=== PATIENT | female | born 1960 | race Caucasian/White ===

== ENCOUNTER 2017-12-01 10:00 | Outpatient (RCR) | payer OTHER, SELFPAY ==
--- NOTE | 2017-11-08 10:22 | HP.PTEVAL ---
Patient's Visit Information FLORENTINO GARG is a 57 year old F referred to Physical Therapy by Cara Brambila DO DR.LMALYS with a diagnosis of Spinal stenosis. Date of Evaluation: 11/08/17 Physical Therapist: Chiki Santiago, PT, - Visit Plan Frequency: 2x /Week Duration: 1 Week Plan: Edu pt on HEP of core stab ex's for deg changes to the LS - Subjective Subjective: Pt reports she has had LBP for over a year. Pt notes she was battling breast cancer at that time, and notes her LBP began while she was taking radiation and chemo. Pt reports she had an MRI one week ago which revealed bulging discs and spinal stenosis. Pt reports sitting sometimes causes her LBP, but notes proonged standing and walking increases her pain the most. Pt also notes she had a hard time transferring sit to stand until taking pain meds for the past 2 days. Occasional sleep diff secondary to pain. Pt reports all of her LBP is located on the R side of her LB. No LE T or N at this time. 2/10 at rest with pain meds, 10/10 prior to taking meds - Pain LBP Pain Intensity (Out of 10): 2 Pain Intensity Range: 10 - Objective Neuro: B LE sensation is WNL to light touch. B patellar reflex= 1/3. MMT: B LE 5/5 throughout. LS ROM: Pt is moderately limited with flexion, and L and R SB. Prone lying: Pt reported increased pain into R gluteal region. Hook lying: SKTC/DKTC both decreased pain in LB region - Goals Goal 1:: I with HEP in 2-3 visits Goal Time Frame: 1 Week - Rehabilitation Potential Physical Therapy Diagnosis: Pt has LBP and limited LS ROM secondary to LS stenosis Rehabilitation Potential: Good - Anticipated Interventions Patient/Client Instruction: Educate patient on: Condition, Plan of Care For the Purpose of:: To improve self management Therapeutic Exercise to Include: Strength training, Postural training, Flexibilty training, Dynamic Lumbar Stabilization For the Purpose of:: To decrease pain, To increase ROM, To improve muscle performance and motor function Cryotherapy (ice pack, ice massage): Yes For the Purpose of:: To decrease pain Thank you for the opportunity to evaluate your patient. For Medicare and Medicare HMO plans, please review the plan of care and approve it. It will need to be FAXED BACK to us at [phone] for Medicare purposes. Please let me know if there are questions or concerns regarding this plan of care. Physician Signature: Date:
--- NOTE | 2017-11-08 10:29 | HP.PTEVAL_ITS ---
Patient's Visit Information FLORENTINO GARG is a 57 year old F referred to Physical Therapy by Cara Brambila DO DR.LMALYS with a diagnosis of Spinal stenosis. Date of Evaluation: 11/08/17 Physical Therapist: Chiki Santiago, PT, - Visit Plan Frequency: 2x /Week Duration: 1 Week Plan: Edu pt on HEP of core stab ex's for deg changes to the LS - Subjective Subjective: Pt reports she has had LBP for over a year. Pt notes she was battling breast cancer at that time, and notes her LBP began while she was taking radiation and chemo. Pt reports she had an MRI one week ago which revealed bulging discs and spinal stenosis. Pt reports sitting sometimes causes her LBP, but notes proonged standing and walking increases her pain the most. Pt also notes she had a hard time transferring sit to stand until taking pain meds for the past 2 days. Occasional sleep diff secondary to pain. Pt reports all of her LBP is located on the R side of her LB. No LE T or N at this time. 2/ 10 at rest with pain meds, 10/10 prior to taking meds - Pain LBP Pain Intensity (Out of 10): 2 Pain Intensity Range: 10 - Objective Neuro: B LE sensation is WNL to light touch. B patellar reflex= 1/3. MMT: B LE 5/5 throughout. LS ROM: Pt is moderately limited with flexion, and L and R SB. Prone lying: Pt reported increased pain into R gluteal region. Hook lying: SKTC/DKTC both decreased pain in LB region - Goals Goal 1:: I with HEP in 2-3 visits Goal Time Frame: 1 Week - Rehabilitation Potential Physical Therapy Diagnosis: Pt has LBP and limited LS ROM secondary to LS stenosis Rehabilitation Potential: Good - Anticipated Interventions Patient/Client Instruction: Educate patient on: Condition, Plan of Care For the Purpose of:: To improve self management Therapeutic Exercise to Include: Strength training, Postural training, Flexibilty training, Dynamic Lumbar Stabilization For the Purpose of:: To decrease pain, To increase ROM, To improve muscle performance and motor function Cryotherapy (ice pack, ice massage): Yes For the Purpose of:: To decrease pain Thank you for the opportunity to evaluate your patient. For Medicare and Medicare HMO plans, please review the plan of care and approve it. It will need to be FAXED BACK to us at [phone] for Medicare purposes. Please let me know if there are questions or concerns regarding this plan of care. Physician Signature: Date:
--- NOTE | 2017-12-01 10:46 | HP.PTDCSUM ---
HP - PT D/C Summary It has been my pleasure to treat FLORENTINO GARG under orders from Cara Brambila DO, DR.LMALYS for the diagnosis of Spinal stenosis for a total of 4 visit(s). Discharge Date: Please see the following information for a summary of their discharge status. - Subjective Subjective: Pt reports she is stiff this date - Pain LBP Pain Intensity (Out of 10): 4 - Objective Objective/Function: Pt is now I with HEP. Pain has decreased, and pt notes she is much more functional at this time. Rx goals are achieved. - Goals Goal 1:: I with HEP in 2-3 visits Goal Progress: Goal Met - Plan Plan: Discharge - D/C Information If there are questions or concerns regarding this patient's physical therapy, please feel free to call me at [phone]. Thank you for the referral of this patient. Sincerely, Chiki Santiago, PT,
== END 2017-12-01 15:20 | disposition home or self-care (01) ==
LOC: PT 10:00
PROVIDERS: Family Provider Family Medicine; PCP Family Medicine; Visit Provider Family Medicine
DX: M48.061 Spinal stenosis, lumbar region without neurogenic claudication (principal); M51.06 Intervertebral disc disorders with myelopathy, lumbar region; M51.36 Other intervertebral disc degeneration, lumbar region
CPT/HCPCS: 97110; 97162; 97530

== ENCOUNTER 2018-02-13 20:14 | Observation (INO) | payer OTHER, SELFPAY ==
[2018-02-13 20:17] VITALS: BP 178/88; PULSE 99; RESP 25; TEMP 36.7; O2SAT 97; BMI 52.9
--- NOTE | 2018-02-13 21:07 | RAD_ITS ---
STUDY: X-RAY CHEST REASON FOR EXAM: Female, 57 years old. Chest pain TECHNIQUE: Single AP portable view of the chest. COMPARISON: 03/18/2017. FINDINGS: The lungs are clear and expanded. There is no demonstrated pleural abnormality. Normal size heart. Normal mediastinum and joaquin. Normal visualized pulmonary arteries. Normal visualized aortic arch and descending thoracic aorta. Normal visualized thoracic spine. Normal visualized ribs, clavicles, and shoulders. There is no demonstrated abnormality of the visualized soft tissue structures of the upper abdomen. RAD/Chest 1 View (Portable) IMPRESSION: Normal x-ray examination of the chest. Electronically Signed: Jarad Delgado MD at 21:29 EDT , Service support ,
--- NOTE | 2018-02-13 21:07 | EKG12_ITS ---
Test Reason : CP Blood Pressure : / mmHG Vent. Rate : 098 BPM Atrial Rate : 098 BPM P-R Int : 174 ms QRS Dur : 086 ms QT Int : 348 ms P-R-T Axes : 055 001 031 degrees QTc Int : 444 ms Normal sinus rhythm Low voltage QRS Septal infarct , age undetermined Abnormal ECG Confirmed by YANELIS ROMANO, RENAY ([id number]), pictures editor PRASAD LYNN ([id number]) on 02/16/2018 12:50:51 PM Referred By: MARIO ALBERTO BAJWA Confirmed By:RENAY HILARIO MD
[2018-02-13 21:08] VITALS: O2SAT 98
[2018-02-13] MEDS: Aspirin 81 MG TAB.CHEW 324 MG PO (21:18)
[2018-02-13 21:19] VITALS: BP 155/81; PULSE 96; RESP 21; O2SAT 96
[2018-02-13 21:36] LABS: Absolute Lymphocyte Count 1.58 X10^3/ul (0.83-4.51); Absolute Neutrophil Count 4.3 X10^3/uL (2.0-7.7); Basophil# 0.03 X10^3/uL; Basophil% 0.5 % (0-1); Hematocrit 37.8 % (37-47); Hemoglobin 11.7 g/dl (12.0-15.0); Lymphocyte # 1.58 X10^3/ul (4.0); Lymphocyte % 23.8 % (19-41); Mean Corpuscular Volume 93.8 fL (81-99); Mean Platelet Vol. 10.5 fl (6.2-12.0); Monocyte# 0.51 X10^3/uL; Monocyte% 7.7 % (0-10); Neutrophil # 4.31 X10^3/uL (2.7-7.7); Neutrophil % 64.8 % (47-70); POSITIVE COUNT NO; POSITIVE DIFFERENTIAL NO; POSITIVE MORPHOLOGY NO; Platelet Count 205 K/mm3 (150-450); RBC Distribution Width CV 14.6 % (11.6-14.6); RBC Distribution Width SD 49.6 fl (35.1-43.9); Red Blood Count 4.03 M/mm3 (4.2-5.4); White Blood Count 6.6 K/mm3 (4.4-11.0)
[2018-02-13 22:00] LABS: Anion Gap 4 (5-15); BUN 16 mg/dL (7-18); BUN/Creat Ratio 22.2 RATIO (10-20); Calcium,Total 8.7 mg/dL (8.5-10.1); Chloride 104 mmol/L (98-107); Creatinine, Serum 0.72 mg/dL (0.55-1.02); EST Glomerular Filtration Rate 89 mL/min (>60); Est Glom Filt Rate - Afr Amer 107 mL/min (>60); Estimated Creatinine Clearance 66.62 ml/min; Glucose 217 mg/dL (74-106); Potassium 3.9 mmol/L (3.5-5.1); Sodium Level 138 mmol/L (136-145)
[2018-02-13 22:10] LABS: BNP,B-Type NATRIURETIC PEPTIDE 13.3 pg/mL (0-100)
--- NOTE | 2018-02-13 23:25 | ED.VISSUMM ---
- ER Visit Summary Date of Service: 02/13/18 Chief Complaint: Chest pain and shortness of breath History of Present Illness: The patient is a [address] Brambila. She reports that she has had intermittent chest heaviness the past 2 days. This lasted approximately 30 minutes and occurred while she was at rest. However, she reports that she has chest pain that began this morning while she was at rest and has been constant all day. Pain waxes and wanes. She describes as a heaviness. Is 6 out of 10 at worst and 3-10 currently. Is worsened by exertion. It is unchanged with breathing. It is improved with rest. Patient reports she has been nauseated and much more short of breath than usual. Finally she complains of bilateral lower extremity edema that began yesterday. Physical Examination: Vitals: Stable. Afebrile. General: Well-nourished and well-developed. Head: Normocephalic atraumatic. Neck: Supple, no lymphadenopathy. No JVD. Nontender. Cardiovascular: Regular rate and rhythm. No murmurs. Respiratory: No respiratory distress. Clear to auscultation bilaterally. Abdominal: Soft, nontender, nondistended, normal bowel sounds. No guarding, rebound, or peritoneal signs. Back: Nontender. Extremities: Nontender, 3+ pitting edema over lower extremity bilaterally. Skin: Normal color, no rash. Neurologic: Alert and oriented ?3. Cranial nerves II through XII are intact. Normal strength and sensation. Psych: Normal affect. Test Results: EKG is sinus at [address] changes. Troponin is negative. PT BUSINESS APPLICATIONS SPECIALIST is 13.3. Chem-7 is more for glucose 217. CBC is marked for hemoglobin 11.7. Chest x-ray is normal. Emergency Department Course and Treatment: Patient was treated with aspirin. She is resting comfortably. Treatment Plan: She will discussed with Dr. Hodges. She will be admitted to the hospital for further evaluation and treatment. Disposition: Admitted in stable condition. Impression: 1. Chest pain. 2. Peripheral edema. 3. WALESKA score of 0. This note was generated with VideoSurfation software. It may contain incorrect words, spelling, and punctuation that were not noted in review of the chart prior to signing ED Disposition - Plan for ED Patient: Chief Complaint: Shortness of Breath Referrals: Cara Brambila DO [Primary Care Provider] -
--- NOTE | 2018-02-13 23:28 | ED.DCSUM_ITS ---
- ER Visit Summary Date of Service: 02/13/18 Chief Complaint: Chest pain and shortness of breath History of Present Illness: The patient is a [address] Brambila. She reports that she has had intermittent chest heaviness the past 2 days. This lasted approximately 30 minutes and occurred while she was at rest. However, she reports that she has chest pain that began this morning while she was at rest and has been constant all day. Pain waxes and wanes. She describes as a heaviness. Is 6 out of 10 at worst and 3-10 currently. Is worsened by exertion. It is unchanged with breathing. It is improved with rest. Patient reports she has been nauseated and much more short of breath than usual. Finally she complains of bilateral lower extremity edema that began yesterday. Physical Examination: Vitals: Stable. Afebrile. General: Well-nourished and well-developed. Head: Normocephalic atraumatic. Neck: Supple, no lymphadenopathy. No JVD. Nontender. Cardiovascular: Regular rate and rhythm. No murmurs. Respiratory: No respiratory distress. Clear to auscultation bilaterally. Abdominal: Soft, nontender, nondistended, normal bowel sounds. No guarding, rebound, or peritoneal signs. Back: Nontender. Extremities: Nontender, 3+ pitting edema over lower extremity bilaterally. Skin: Normal color, no rash. Neurologic: Alert and oriented ?3. Cranial nerves II through XII are intact. Normal strength and sensation. Psych: Normal affect. Test Results: EKG is sinus at [address] changes. Troponin is negative. PT TOOL DRAWING CHECKER is 13.3. Chem-7 is more for glucose 217. CBC is marked for hemoglobin 11.7. Chest x-ray is normal. Emergency Department Course and Treatment: Patient was treated with aspirin. She is resting comfortably. Treatment Plan: She will discussed with Dr. Hodges. She will be admitted to the hospital for further evaluation and treatment. Disposition: Admitted in stable condition. Impression: 1. Chest pain. 2. Peripheral edema. 3. WALESKA score of 0. This note was generated with Quizensation software. It may contain incorrect words, spelling, and punctuation that were not noted in review of the chart prior to signing ED Disposition - Plan for ED Patient: Chief Complaint: Shortness of Breath Referrals: Cara Brambila DO [Primary Care Provider] -
--- NOTE | 2018-02-13 23:29 | HP.PCM_ITS ---
Problem List (1) Chest pain Status: Acute Qualifiers: Chest pain type: unspecified Qualified Code(s): R07.9 - Chest pain, unspecified (2) History of breast cancer Status: Chronic (3) Hypertension Status: Chronic (4) Morbid obesity with BMI of 45.0-49.9, adult Status: Chronic (5) DM (diabetes mellitus), type 2, uncontrolled Status: Chronic Comment: new diagnosis......pt states she was told she was borderline in the past (6) Sleep apnea Status: Chronic History of Present Illness Date of Admission: 02/13/18 Chief Complaint: chest pain The patient is a 57 year old female presents to the ER with one day of substernal chest pain. Currently 3-4/10 non radiating and feels like a heaviness. No previous cardiac stress testing done. She has a history of breast cancer status post lumpectomy 2014, and chem and radiation following that. She also has diabetes which is reportedly under poor control. She has gained 20lbs recently and feels more swollen than usual. The patient reports having an echo about a year ago in [place] but thinks she was told one of her chambers wasn't working as well. She did not follow up with a central supply assistant. She will be admitted for further cardiac workup. Past Medical History Past Medical History (Chronic Problems): Chronic Problems Low HDL (under 40) (Chronic) History of breast cancer (Chronic) Hepatic steatosis (Chronic) Hypertension (Chronic) Morbid obesity with BMI of 45.0-49.9, adult (Chronic) DM (diabetes mellitus), type 2, uncontrolled (Chronic) new diagnosis......pt states she was told she was borderline in the past Sleep apnea (Chronic) Allergies No Known Allergies Allergy (Verified 02/13/18 20:16) Home Medications: Ambulatory Orders Medication Instructions Recorded Atorvastatin Calcium [Lipitor] 40 mg PO QHS 03/18/17 Lisinopril [Zestril] 2.5 mg PO DAILY 03/18/17 Metformin(XR) [Glucophage Xr] 1,000 mg PO BIDCM #60 tablet 03/22/17 Glipizide [Glipizide ER] 10 mg PO DAILY 02/13/18 Meloxicam [Mobic] 15 mg PO DAILY 02/13/18 Pioglitazone [Actos] 15 mg PO DAILY 02/13/18 Tamoxifen Citrate 20 mg PO DAILY 02/13/18 Surgical History: - - tubal ligation, 2 C sections, sbo hernia repair Psychiatric History: No pertinent psych hx SAFETY SUPERVISOR History: - - She is in menopause and has had 2 caesarian sections in the past Smoking Status: Former smoker - *Family History Paternal History Items: - - Her father had diabetes mellitus and of complications secondary to diabetes mellitus. Maternal History Items: - - She tells me that her mother had stomach cancer. Offspring History Items: - - One of her children has diabetes mellitus and sleep apnea. Review of Systems Constitutional: Denies: Chills, Fever, Weight Change HEENT: Denies: Head Aches, Sinus Congestion, Sinus Drainage Cardiovascular: Reports: Chest Pain. Denies: Palpitations Respiratory: Reports: Shortness of Breath. Denies: Cough, Sputum production Gastrointestinal: Denies: Abdominal Pain, Nausea, Vomiting Genitourinary: Denies: Dysuria Musculoskeletal: Denies: Joint Pain, Joint Tenderness Skin: Denies: Rash, Wounds Neurological: Denies: Numbness, Tingling, Focal weakness Psychiatric: Reports: Anxiety. Denies: Depression, Homicidal Ideations, Suicidal Ideations Hematologic/ Lymphatic: Denies: Easy Bruising, Easy Bleeding VTE Information - Inpt Only VTE Present on Admission: No VTE Mechan Device Prophylaxis: None VTE Pharm Prophylaxis ordered?: Yes Patient Problems: Active and Suspected Problems Chest pain (Acute) - Physical Exam General: Alert, Oriented x3, Cooperative HEENT: Atraumatic, Normocephalic Neck: Supple Lungs: Clear to auscultation, Normal air movement Cardiovascular: Regular rate, Normal S1, Normal S2, No murmurs Abdomen: Bowel Sounds Present, Soft, Non Tender, Obese Extremities: Capillary Refill Less than 3 Seconds, Edema - 1+ lower ext edema Skin: No rashes Musculoskeletal: No Tenderness to Palpation of Joints or Extremities Neurological: Neuro grossly intact Psych/Mental Status: Normal Affect, Appropriate Vital Signs Temp Pulse Resp BP Pulse Ox 98.1 F 96 21 H 155/81 H 96 02/13/18 20:17 02/13/18 21:19 02/13/18 21:19 02/13/18 21:19 02/13/18 21:19 Oxygen Delivery Method Room Air Weight: 280 lb 3.32 oz Body Mass Index (BMI) 52.9 Finger Stick Blood Glucose 190 Laboratory Tests Past 24 Hrs 02/13/18 02/13/18 02/13/18 20:50 20:50 20:50 WBC 6.6 RBC 4.03 L Hgb 11.7 L Hct 37.8 MCV 93.8 MCH 29.0 MCHC 31.0 L RDW 14.6 RDW Differential 49.6 H Plt Count 205 MPV 10.5 Immature Gran % (Auto) 0.200 Neut % (Auto) 64.8 Lymph % (Auto) 23.8 [place] % (Auto) 7.7 Eos % (Auto) 3.0 Baso % (Auto) 0.5 Absolute Neuts (auto) 4.3 Absolute Lymphs (auto) 1.58 Total Counted Not Reportable Sodium 138 Potassium 3.9 Chloride 104 Carbon Dioxide 30.0 Anion Gap 4 L BUN 16 Creatinine 0.72 Estim Creat Clear Calc 66.62 Est GFR (MDRD) Af Amer 107 Est GFR (MDRD) Non-Af 89 BUN/Creatinine Ratio 22.2 H Glucose 217 H Calcium 8.7 Troponin I < 0.02 B-Natriuretic Peptide 13.3 Assessment/Plan Active and Suspected Problems Chest pain (Acute) Chronic Problems Low HDL (under 40) (Chronic) History of breast cancer (Chronic) Hepatic steatosis (Chronic) Hypertension (Chronic) Morbid obesity with BMI of 45.0-49.9, adult (Chronic) DM (diabetes mellitus), type 2, uncontrolled (Chronic) new diagnosis......pt states she was told she was borderline in the past Sleep apnea (Chronic) Plan - admit to PCU - morphine , oxygen, nitro and aspirin per routine - cycle cardiac markers - nuclear stress test in am (pharmacologic) - echo in am to follow up on reported previous abnormality - Continue routine home medications for stable conditions - LMWH for dvt prophylaxis Code Visit OBSV E&M: 85123 Initial observation care L2
--- NOTE | 2018-02-13 23:48 | NURSING ---
CALLED CRISIS TO SEE THIS PT
[2018-02-13 23:57] VITALS: BP 153/66; PULSE 82; RESP 16; O2SAT 98
[2018-02-13 23:59] VITALS: BP 153/66; PULSE 78; RESP 20; O2SAT 98
[2018-02-14] VITALS (11 sets, daily range): BP systolic 118–155; BP diastolic 66–74; PULSE 79–98; RESP 16–18; TEMP 36.4–36.8; O2SAT 95; BMI 52.2
[2018-02-14] MEDS: 0.9% NaCl Peripheral Flush Adult/Peds IV ×2 (01:16→06:32)
[2018-02-14 01:35] LABS: Bedside Glucose 122 mg/dL (70-110)
[2018-02-14 05:34] LABS: Absolute Lymphocyte Count 1.28 X10^3/ul (0.83-4.51); Absolute Neutrophil Count 3.2 X10^3/uL (2.0-7.7); Basophil# 0.02 X10^3/uL; Basophil% 0.4 % (0-1); Eosinophil# 0.17 X10^3/uL; Eosinophils% 3.3 % (0-5); Hematocrit 34.5 % (37-47); Hemoglobin 10.7 g/dl (12.0-15.0); Lymphocyte # 1.28 X10^3/ul (4.0); Lymphocyte % 25.2 % (19-41); Mean Corpuscular Hgb 29.6 pg (27.0-32.0); Mean Corpuscular Volume 95.3 fL (81-99); Mean Platelet Vol. 10.7 fl (6.2-12.0); Monocyte# 0.42 X10^3/uL; Monocyte% 8.3 % (0-10); Neutrophil # 3.18 X10^3/uL (2.7-7.7); Neutrophil % 62.6 % (47-70); Platelet Count 179 K/mm3 (150-450); RBC Distribution Width CV 14.6 % (11.6-14.6); RBC Distribution Width SD 48.4 fl (35.1-43.9); Red Blood Count 3.62 M/mm3 (4.2-5.4); White Blood Count 5.1 K/mm3 (4.4-11.0)
[2018-02-14 05:35] LABS: POSITIVE COUNT NO; POSITIVE DIFFERENTIAL NO; POSITIVE MORPHOLOGY NO
[2018-02-14 05:38] LABS: International Normalized Ratio 1.1
[2018-02-14 05:39] LABS: Partial Thromboplast Time 27.7 Seconds (24.1-36.2)
--- NOTE | 2018-02-14 05:55 | ECHOD_ITS ---
Reason For Study: CHEST PAIN Procedure This was a 2D Doppler, Color Flow transthoracic echocardiogram. The study was technically difficult. Contrast injection was performed. Exam performed portable in patient room. Left Ventricle Normal LV size. Left ventricular systolic function is normal. The estimated ejection fraction is 65 %. Transmitral doppler flow suggestive of impaired relaxation of left ventricle. No regional wall motion abnormalities noted. Right Ventricle Normal RV size. Normal systolic function. Atria Normal left atrium. Normal right atrium. No doppler evidence for ASD. Mitral Valve There is no mitral annular calcification. Normal mitral valve. Trivial mitral valve insufficiency. Tricuspid Valve The tricuspid valve is not well visualized. Trivial tricuspid valve insufficiency. Right ventricular systolic pressure estimated to be 26 mmHg. Aortic Valve The aortic valve is not well visualized. Pulmonic Valve The pulmonic valve is not well visualized. Great Vessels Normal sized aortic root. Pericardium/Pleural No pericardial effusion. Medication Diluted definity 4ml given slow IV push to enhance endocardial definition. MMode/2D Measurements & Calculations LVIDd: 4.5 cm IVSd: 1.2 cm Ao root diam: 3.0 cm LVIDs: 2.9 cm LVPWd: 1.2 cm LA dimension: 3.4 cm RVDd: 3.1 cm FS: 37.0 % LAV(MOD-sp4): 33.8 ml EDV(MOD-sp4): 144.9 ml EDV(MOD-sp2): 101.4 ml ESV(MOD-sp4): 47.6 ml EF(MOD-sp2): 67.2 % EF(MOD-sp4): 67.2 % SV(MOD-sp4): 97.3 ml SV(MOD-sp2): 68.1 ml LA A4 area: 15.3 cm2 Doppler Measurements & Calculations MV E max hollis: 103.5 cm/sec Lat Peak E' Hollis: 8.9 cm/sec Med Peak E' Hollis: 7.7 cm/sec MV A max hollis: 108.8 cm/sec E/E' lat: 11.6 E/E' med: 13.5 MV E/A: 0.95 Ao V2 max: 229.2 cm/sec LV V1 max: 117.0 cm/sec TR max hollis: 240.0 cm/sec Ao max P.0 mmHg LV V1 max P.5 mmHg TR max P.4 mmHg Interpretation Summary The study was technically difficult. Contrast injection was performed. Left ventricular systolic function is normal. The estimated ejection fraction is 65 %. Trivial mitral valve insufficiency. Trivial tricuspid valve insufficiency. Right ventricular systolic pressure estimated to be 26 mmHg. Transmitral doppler flow suggestive of impaired relaxation of left ventricle Ordering Physician: Lance Whiteside Referring Physician: COBY MARCUS Performed By: Dana Cox RDCS, RVT
--- NOTE | 2018-02-14 05:55 | EKG12_ITS ---
Test Reason : AM EKG Blood Pressure : / mmHG Vent. Rate : 083 BPM Atrial Rate : 083 BPM P-R Int : 184 ms QRS Dur : 096 ms QT Int : 394 ms P-R-T Axes : 061 031 018 degrees QTc Int : 462 ms Normal sinus rhythm Low voltage QRS Borderline ECG Confirmed by YANELIS ROMANO, RENAY ([id number]), supervising film or videotape editor PRASAD LYNN ([id number]) on 02/16/2018 1:23:04 PM Referred By: MARIO ALBERTO BAJWA Confirmed By:RENAY HILARIO MD
[2018-02-14 06:00] LABS: ALB/GLOB Ratio 0.8 RATIO (0.9-2.4); AST(SGOT) 14 U/L (15-37); Alanine Aminotransfer ALT/SGPT 19 U/L (13-56); Albumin, Serum 2.8 g/dL (3.2-5.0); Alkaline Phosphatase 69 U/L (45-117); Anion Gap 9 (5-15); BUN 12 mg/dL (7-18); Bilirubin, Direct 0.08 mg/dL (0.00-0.30); Calcium,Total 7.9 mg/dL (8.5-10.1); Chloride 107 mmol/L (98-107); Cholesterol 146 mg/dL (200); Creatinine, Serum 0.48 mg/dL (0.55-1.02); EST Glomerular Filtration Rate 142 mL/min (>60); Est Glom Filt Rate - Afr Amer 172 mL/min (>60); Estimated Creatinine Clearance 99.93 ml/min; Globulin 3.6 g/dL (2.2-4.2); Glucose 129 mg/dL (74-106); High Density Lipoprotein 55 mg/dL; Potassium 3.8 mmol/L (3.5-5.1); Protein, Total 6.4 g/dL (6.4-8.2); Sodium Level 145 mmol/L (136-145); Thyroid Stim Hormone (TSH) 3.18 uIU/mL (0.358-3.74); Triglycerides 78 mg/dL; Very Low Density Lipoprotein 16 mg/dL (5-40)
[2018-02-14] MEDS: Lisinopril 2.5 MG Tablet PO (06:32)
[2018-02-14] MEDS: Aspirin E.C. 325 MG Tablet PO (06:33)
[2018-02-14] MEDS: Acetaminophen 325 MG Tablet 650 MG PO (06:33)
[2018-02-14 07:10] LABS: Bedside Glucose 149 mg/dL (70-110)
--- NOTE | 2018-02-14 09:40 | NURSING ---
off floor to stress test at this time
--- NOTE | 2018-02-14 12:10 | STRESSREP ---
Stress Test Report Date: 02/14/2018 Procedure: Pharmacologic stress nuclear imaging study Indications: Chest pain Consent: Per the patient Procedure: The patient underwent pharmacologic (Regadenoson) evaluation with a peak heart rate of 105 beats per minute (63 predicted maximal heart rate) and a peak blood pressure of 133/64 mmHg. The baseline ECG demonstrated normal sinus rhythm. The peak pharmacologic ECG demonstrated no obvious ECG changes. There were no cardiac dysrhythmias pretest, during pharmacologic infusion, or recovery. There was no complaint of chest discomfort during pharmacologic infusion or recovery. The examination was discontinued secondary to completion of protocol. Impression: 1. Pharmacologic (Regadenoson) evaluation 2. Peak pharmacologic ECG with no obvious ECG changes. 3. There were no cardiac dysrhythmias pretest, during pharmacologic infusion, or recovery 4. Nuclear images pending Myocardial perfusion imaging study: Technique: The patient was injected with 15 millicuries of technetium 99m Cardiolite and subsequently rest SPECT Cardiolite nuclear imaging was obtained in the horizontal long, vertical long, and short axis views. The patient underwent pharmacologic (Regadenoson) evaluation with a peak heart rate of 105 beats per minute (63 % percent predicted maximal heart rate) and a peak blood pressure of 133/64 mmHg. The patient was injected with 44.1 millicuries of technetium 99m Cardiolite and subsequently stress SPECT Cardiolite nuclear imaging was obtained in the horizontal long, vertical long, and short axis views. A gated Cardiolite study at peak stress was obtained. Interpretation: Rest and stress SPECT Cardiolite nuclear imaging status post realignment, normalization, and attenuation correction demonstrate small area of diminished tracer uptake near the distal anterior septum/septal apical areas without significant change between rest and stress. There are similar type findings on the resting and stress polar map images.. There is end systolic thickening and brightening. The gated Cardiolite study demonstrates myocardial thickening and inward wall motion. The reported LVEF is 73 %. Impression: 1. Rest and stress SPECT Cardiolite nuclear imaging demonstrate small area of diminished tracer uptake near the distal anterior septum/septal apical areas without significant change between rest and stress compatible with physiologic apical thinning with no myocardial perfusion changes consider diagnostic for associated stress-induced myocardial ischemia or previous myocardial injury/infarction. 2. The gated Cardiolite study reports an LVEF of 73 %. This note was generated with navabi software. It may contain incorrect words, spelling, and punctuation that were not noted in checking the note before signing.
[2018-02-14] MEDS: Pioglitazone Hydrochloride 15 MG Tablet PO (12:17)
[2018-02-14] MEDS: Tamoxifen 10 MG Tablet 20 MG PO (12:17)
[2018-02-14] MEDS: glipiZIDE 10 MG Tablet PO (12:20)
[2018-02-14 12:25] LABS: Bedside Glucose 179 mg/dL (70-110)
--- NOTE | 2018-02-14 12:25 | STRESSREP_ITS ---
Stress Test Report Date: 02/14/2018 Procedure: Pharmacologic stress nuclear imaging study Indications: Chest pain Consent: Per the patient Procedure: The patient underwent pharmacologic (Regadenoson) evaluation with a peak heart rate of 105 beats per minute (63 predicted maximal heart rate) and a peak blood pressure of 133/64 mmHg. The baseline ECG demonstrated normal sinus rhythm. The peak pharmacologic ECG demonstrated no obvious ECG changes. There were no cardiac dysrhythmias pretest, during pharmacologic infusion, or recovery. There was no complaint of chest discomfort during pharmacologic infusion or recovery. The examination was discontinued secondary to completion of protocol. Impression: 1. Pharmacologic (Regadenoson) evaluation 2. Peak pharmacologic ECG with no obvious ECG changes. 3. There were no cardiac dysrhythmias pretest, during pharmacologic infusion, or recovery 4. Nuclear images pending Myocardial perfusion imaging study: Technique: The patient was injected with 15 millicuries of technetium 99m Cardiolite and subsequently rest SPECT Cardiolite nuclear imaging was obtained in the horizontal long, vertical long, and short axis views. The patient underwent pharmacologic (Regadenoson) evaluation with a peak heart rate of 105 beats per minute (63 % percent predicted maximal heart rate) and a peak blood pressure of 133/64 mmHg. The patient was injected with 44.1 millicuries of technetium 99m Cardiolite and subsequently stress SPECT Cardiolite nuclear imaging was obtained in the horizontal long, vertical long, and short axis views. A gated Cardiolite study at peak stress was obtained. Interpretation: Rest and stress SPECT Cardiolite nuclear imaging status post realignment, normalization, and attenuation correction demonstrate small area of diminished tracer uptake near the distal anterior septum/septal apical areas without significant change between rest and stress. There are similar type findings on the resting and stress polar map images.. There is end systolic thickening and brightening. The gated Cardiolite study demonstrates myocardial thickening and inward wall motion. The reported LVEF is 73 %. Impression: 1. Rest and stress SPECT Cardiolite nuclear imaging demonstrate small area of diminished tracer uptake near the distal anterior septum/septal apical areas without significant change between rest and stress compatible with physiologic apical thinning with no myocardial perfusion changes consider diagnostic for associated stress-induced myocardial ischemia or previous myocardial injury/ infarction. 2. The gated Cardiolite study reports an LVEF of 73 %. This note was generated with [employer]ix[employer] software. It may contain incorrect words, spelling, and punctuation that were not noted in checking the note before signing.
[2018-02-14] MEDS: Enoxaparin 40 MG/0.4 ML Syringe SC (13:38)
--- NOTE | 2018-02-14 17:26 | DS.PCM_ITS ---
Discharge Date and Diagnosis - Problem List Patient Problems: Active and Suspected Problems Chest pain (Acute) Date of Admission: 02/13/18 Date of Discharge: 02/14/18 - Primary Discharge Diagnosis Active and Suspected Problems Chest pain (Acute) Edema of upper and lower extremities and face Suspected edema 2/2 tamoxifen DMt2 HTN HLD Morbid obesity Breast cancer in remission - Secondary Discharge Diagnosis Chronic Problems Low HDL (under 40) (Chronic) History of breast cancer (Chronic) Hepatic steatosis (Chronic) Hypertension (Chronic) Morbid obesity with BMI of 45.0-49.9, adult (Chronic) DM (diabetes mellitus), type 2, uncontrolled (Chronic) new diagnosis......pt states she was told she was borderline in the past Sleep apnea (Chronic) Hospital Course and Treatment Imaging Results: Echo: Interpretation Summary The study was technically difficult. Contrast injection was performed. Left ventricular systolic function is normal. The estimated ejection fraction is 65 %. Trivial mitral valve insufficiency. Trivial tricuspid valve insufficiency. Right ventricular systolic pressure estimated to be 26 mmHg. Transmitral doppler flow suggestive of impaired relaxation of left ventricle RAD/Chest 1 View (Portable) IMPRESSION: Normal x-ray examination of the chest. Stress Test: Impression: 1. Rest and stress SPECT Cardiolite nuclear imaging demonstrate small area of diminished tracer uptake near the distal anterior septum/septal apical areas without significant change between rest and stress compatible with physiologic apical thinning with no myocardial perfusion changes consider diagnostic for associated stress-induced myocardial ischemia or previous myocardial injury/ infarction. 2. The gated Cardiolite study reports an LVEF of 73 %. Operations: None, - - exploratory laparotomy with release of incarcerated ventral incisional hernia, lysis of adhesions, release small bowel obstruction with release of internal hernia Procedures: 2-D Echocardiogram, Stress test Summary of Care Provided: Physical exam on day of discharge: General: Resting comfortably NAD Psych: A/Ox3 normal affect HEENT: PEARRLA AT NC Neck: Supple NT CV: RRR no m/t/r/g/h Resp: CTA Abd: [id number] Soft NT no guarding or rigidity, morbidly obese Ext: DP2+= no pitting edema appreciated. Negative Homans/Yg sign. Skin: W/D normal turgor Lymph/Heme: No active bleeding or adenopathy Neuro: CN2-12 intact Hospital course: The patient is a 57 year old F who presents to the emergency room with chief complaint of swelling of her upper lower extremities, and face, and substernal chest heaviness. Patient has a history of breast cancer in remission status post lumpectomy, chemo, and radiation, currently on tamoxifen. She noted that she has recently gained about 20 pounds and feels more swollen than normal. She also has a history of type 2 diabetes, hyperlipidemia, morbid obesity, hypertension. She had a negative chest x-ray, negative troponin, negative EKG, and was admitted to the PCU for chest pain workup. We cycled her troponins, repeat EKG, maintained her on telemetry, and obtained a stress test and echocardiogram. Her workup was unremarkable. We also checked a TSH which was negative, LDLs which were at 75, and a BNP which was negative. Is felt that her chest discomfort is musculoskeletal in origin. Is felt that her increased peripheral edema was likely secondary to her tamoxifen which had been recently started. We advised her to have close follow-up with her oncologist she will also need follow-up with her PCP. She is discharged home in stable condition. This patient was seen by Benjie Novak PA-C under the supervision of Doctor Zain. [] Discharge Diet: Low fat/ Low Cholesterol, 1800 Calorie Control Diet, 2000 mg Sodium Diet Discharge Activity: Return to Normal Activity Home Medications: Medications to take at Discharge Atorvastatin Calcium [Lipitor] 40 mg PO QHS 03/18/17 Lisinopril [Zestril] 2.5 mg PO DAILY 03/18/17 Metformin(XR) [Glucophage Xr] 1,000 mg PO BIDCM #60 tablet 03/22/17 Glipizide [Glipizide ER] 10 mg PO DAILY 02/13/18 Pioglitazone [Actos] 15 mg PO DAILY 02/13/18 Tamoxifen Citrate 20 mg PO DAILY 02/13/18 Primary Care Physician: Cara Brambila DO [Primary Care Provider] - Please follow up with your Primary Care Physician in: 1-2 weeks Please Follow Up With: Your oncologist When: 1-2 weeks Disposition: Home Minutes spent on discharge:: 35 Patient Condition:: Stable Medical Necessity - Tobacco Use Smoking Status: Former smoker Meaningful Use Info Meaningful Use Diagnoses (Choose all that apply): None applicable
--- NOTE | 2018-02-14 17:27 | DCINST_ITS ---
- Discharge Diagnoses Current Active Problems: Current Active and Chronic Problems Chest pain (Acute) You will use the following diet at home:: Calorie/Carbohydrate Controlled ( specify 1200, 1400, etc) - 1800, Cardiac - <2 g sodium per day, low fat/ cholesterol Your food should be the consistency of: Regular Your liquids should be the consistency of: Regular/Thin Discharge Activity: Return to Normal Activity Allergies/Adverse Reactions: Allergies No Known Allergies Allergy (Verified 02/13/18 20:16) Medications to take at Discharge Atorvastatin Calcium [Lipitor] 40 mg PO QHS 03/18/17 Lisinopril [Zestril] 2.5 mg PO DAILY 03/18/17 Metformin(XR) [Glucophage Xr] 1,000 mg PO BIDCM #60 tablet 03/22/17 Glipizide [Glipizide ER] 10 mg PO DAILY 02/13/18 Pioglitazone [Actos] 15 mg PO DAILY 02/13/18 Tamoxifen Citrate 20 mg PO DAILY 02/13/18 Primary Care Physician: Cara Brambila DO [Primary Care Provider] - Please follow up with your Primary Care Physician in: 1-2 weeks Please Follow Up With: Your oncologist When: 1-2 weeks Proposed Discharge Date: 02/14/18
== END 2018-02-14 17:27 | disposition home or self-care (01) ==
LOC: ED 22:17 → PCU 02-14 00:07
PROVIDERS: Admitting Provider Family Medicine; Emergency Provider Emergency Medicine; Family Provider Family Medicine; PCP Family Medicine; Visit Provider Family Medicine
DX: R07.89 Other chest pain (principal); I10 Essential (primary) hypertension; E78.5 Hyperlipidemia, unspecified; M19.90 Unspecified osteoarthritis, unspecified site; E11.9 Type 2 diabetes mellitus without complications; G47.33 Obstructive sleep apnea (adult) (pediatric); E66.01 Morbid (severe) obesity due to excess calories; Z68.43 Body mass index [BMI] 50.0-59.9, adult; Z71.3 Dietary counseling and surveillance; Z85.3 Personal history of malignant neoplasm of breast; Z92.3 Personal history of irradiation; Z92.21 Personal history of antineoplastic chemotherapy; Z79.899 Other long term (current) drug therapy; Z79.84 Long term (current) use of oral hypoglycemic drugs; E11.65 Type 2 diabetes mellitus with hyperglycemia; R60.0 Localized edema; Z87.891 Personal history of nicotine dependence; R06.02 Shortness of breath
CPT/HCPCS: 36415; 71045; 78452; 80048; 80053; 80061; 82248; 82962; 83880; 84443; 84484; 85025; 85610; 85730; 93005; 93017; 93306; 96372; 99218; 99284; A9500; Q9957; A4216; C8929; G0378; J2785

== ENCOUNTER → 2018-05-01 10:15 | Outpatient (CLI) | payer MEDICAID, SELFPAY ==
[2018-05-01 11:14] LABS: Absolute Lymphocyte Count 1.27 X10^3/ul (0.83-4.51); Absolute Neutrophil Count 3.9 X10^3/uL (2.0-7.7); Basophil# 0.02 X10^3/uL; Basophil% 0.4 % (0-1); Eosinophils% 1.8 % (0-5); Hemoglobin 11.9 g/dl (12.0-15.0); Lymphocyte # 1.27 X10^3/ul (4.0); Lymphocyte % 22.4 % (19-41); Mean Corp Hgb Conc 31.3 g/gl (32-36); Mean Corpuscular Hgb 29.8 pg (27.0-32.0); Mean Corpuscular Volume 95.2 fL (81-99); Mean Platelet Vol. 11.1 fl (6.2-12.0); Monocyte# 0.39 X10^3/uL; Monocyte% 6.9 % (0-10); Neutrophil # 3.88 X10^3/uL (2.7-7.7); Neutrophil % 68.3 % (47-70); Platelet Count 180 K/mm3 (150-450); RBC Distribution Width CV 14.1 % (11.6-14.6); RBC Distribution Width SD 47.2 fl (35.1-43.9); Red Blood Count 3.99 M/mm3 (4.2-5.4); White Blood Count 5.7 K/mm3 (4.4-11.0)
[2018-05-01 11:18] LABS: POSITIVE COUNT NO; POSITIVE DIFFERENTIAL NO; POSITIVE MORPHOLOGY NO
[2018-05-01 11:43] LABS: ALB/GLOB Ratio 0.8 RATIO (0.9-2.4); AST(SGOT) 22 U/L (15-37); Alanine Aminotransfer ALT/SGPT 28 U/L (13-56); Albumin, Serum 3.1 g/dL (3.2-5.0); Alkaline Phosphatase 69 U/L (45-117); Anion Gap 10 (5-15); BUN 11 mg/dL (7-18); BUN/Creat Ratio 19.9 RATIO (10-20); Calcium,Total 8.3 mg/dL (8.5-10.1); Chloride 104 mmol/L (98-107); Cholesterol 147 mg/dL (200); Creatinine, Serum 0.55 mg/dL (0.55-1.02); EST Glomerular Filtration Rate 121 mL/min (>60); Est Glom Filt Rate - Afr Amer 146 mL/min (>60); Glucose 141 mg/dL (74-106); High Density Lipoprotein 54 mg/dL; Potassium 4.3 mmol/L (3.5-5.1); Protein, Total 7.1 g/dL (6.4-8.2); Sodium Level 143 mmol/L (136-145); Triglycerides 81 mg/dL; Very Low Density Lipoprotein 16 mg/dL (5-40)
== END ==
PROVIDERS: Family Provider Family Medicine; PCP Family Medicine; Visit Provider Family Medicine
DX: E11.9 Type 2 diabetes mellitus without complications (principal); R60.0 Localized edema; I10 Essential (primary) hypertension; E55.9 Vitamin D deficiency, unspecified; Z51.81 Encounter for therapeutic drug level monitoring
CPT/HCPCS: 36415; 80053; 80061; 82306; 83036; 85025

== ENCOUNTER → 2018-05-04 16:53 | Outpatient (CLI) | payer MEDICAID, SELFPAY ==
--- NOTE | 2018-05-04 16:56 | RAD_ITS ---
STUDY: X-RAY - PELVIS AND RIGHT HIP REASON FOR EXAM: Female, 58 years old. Pain TECHNIQUE: Radiological exam, hip, unilateral, with pelvis when performed; 2 or 3 views. COMPARISON: None. FINDINGS: There is a non-specific bowel gas pattern. Normal visualized soft tissue structures. Enthesophytes are seen along the lateral margins of the iliac crests and greater trochanters. Normal bilateral superior and inferior pubic rami. Normal pubic symphysis. Normal bilateral ischial tuberosities. Normal visualized femoral head. There is osteoarthritic spur formation of the acetabular rim. Normal hip joint. RAD/Hip 2-3 Views with Pelvis IMPRESSION: Degenerative changes. No acute bony abnormality. Electronically Signed: Sanjeev Arriola DO at 9:12 EDT Tel , Service support ,
== END ==
PROVIDERS: Family Provider Family Medicine; PCP Family Medicine; Visit Provider Family Medicine
DX: M25.551 Pain in right hip (principal)
CPT/HCPCS: 73502

== ENCOUNTER → 2018-06-21 20:49 | Outpatient (CLI) | payer MEDICAID, SELFPAY | PROVIDERS: Family Provider Family Medicine; PCP Family Medicine; Visit Provider Internal Medicine Critical Care Medicine | DX: G47.33 Obstructive sleep apnea (adult) (pediatric) (principal) | CPT/HCPCS: 95811 ==

== ENCOUNTER 2018-06-30 16:18 | Emergency (ER) | payer MEDICAID, SELFPAY ==
[2018-06-30 16:18] VITALS: BP 186/86; PULSE 87; RESP 16; TEMP 37.1; O2SAT 95; BMI 51.0
[2018-06-30] MEDS: 0.9% Normal Saline 1,000 ML 1000 ML IV (17:50)
[2018-06-30] MEDS: Ketorolac 30 MG/ML Syringe IV (17:50)
[2018-06-30] MEDS: Ondansetron 4 MG/2 ML Vial IV (17:50)
[2018-06-30 18:02] LABS: Mucous, Urine 0 SEEN /hpf (<or=2+); Red Blood Cells-Urine 0 SEEN /hpf (0-5)
[2018-06-30 18:09] LABS: Absolute Lymphocyte Count 1.51 X10^3/ul (0.83-4.51); Absolute Neutrophil Count 4.3 X10^3/uL (2.0-7.7); Basophil# 0.02 X10^3/uL; Basophil% 0.3 % (0-1); Eosinophil# 0.13 X10^3/uL; Eosinophils% 2.1 % (0-5); Hematocrit 39.2 % (37-47); Hemoglobin 12.1 g/dl (12.0-15.0); Lymphocyte # 1.51 X10^3/ul (4.0); Lymphocyte % 23.8 % (19-41); Mean Corp Hgb Conc 30.9 g/gl (32-36); Mean Corpuscular Hgb 29.4 pg (27.0-32.0); Mean Corpuscular Volume 95.4 fL (81-99); Mean Platelet Vol. 10.4 fl (6.2-12.0); Monocyte# 0.36 X10^3/uL; Monocyte% 5.7 % (0-10); Neutrophil # 4.32 X10^3/uL (2.7-7.7); Neutrophil % 68.1 % (47-70); Platelet Count 184 K/mm3 (150-450); RBC Distribution Width CV 14.3 % (11.6-14.6); RBC Distribution Width SD 49.2 fl (35.1-43.9); Red Blood Count 4.11 M/mm3 (4.2-5.4); White Blood Count 6.3 K/mm3 (4.4-11.0)
[2018-06-30 18:11] LABS: POSITIVE COUNT NO; POSITIVE DIFFERENTIAL NO; POSITIVE MORPHOLOGY NO
[2018-06-30 18:14] LABS: Color, Urine Yellow (Yellow); Glucose, Dipstick 1000 mg/dl (Normal); Ketone-Dipstick Negative (Negative); Leukocyte Esterase-Dipstick 25 /ul (Negative); Nitrite-Dipstick Negative (Negative); Occult Blood-Urine Negative /ul (Negative); Protein-Dipstick 30 mg/dl (Negative); Urine Bilirubin Dipstick Negative (Negative); Urine Clarity Sl. Cloudy (Clear); Urine Urobilinogen Normal (Normal)
[2018-06-30 18:46] LABS: Bacteria 1+ /hpf (None Seen); Squamous Epithelial Cells - UA 0-5 SEEN /hpf (5-10); White Blood Cells 0-5 SEEN /hpf (0-5)
[2018-06-30] MEDS: oxyCODONE 5 MG Tablet 10 MG PO (18:54)
[2018-06-30 19:12] LABS: Anion Gap 9 (5-15); BUN 12 mg/dL (7-18); BUN/Creat Ratio 17.5 RATIO (10-20); Calcium,Total 8.9 mg/dL (8.5-10.1); Chloride 104 mmol/L (98-107); Creatinine, Serum 0.69 mg/dL (0.55-1.02); EST Glomerular Filtration Rate 94 mL/min (>60); Est Glom Filt Rate - Afr Amer 114 mL/min (>60); Glucose 151 mg/dL (74-106); Potassium 4.1 mmol/L (3.5-5.1); Sodium Level 142 mmol/L (136-145)
--- NOTE | 2018-06-30 19:56 | ED.VISSUMM ---
- ER Visit Summary Date of Service: 06/30/18 Chief Complaint: Back pain History of Present Illness: The patient is a [address] Brambila. She reports that she has left flank pain that began today. States it is a continuous pain that she is unable to further describe. Is 10 at 10 worst 910 currently. Is worsened by sitting or standing. Is relieved by straightening out. She denies any radiation to her legs. No numbness or weakness in her legs. No problems with her bowels or bladder. No groin numbness. No recent trauma. No fall, MVA, or change in activity. Physical Examination: Vitals: Stable. Afebrile. General: A&O x 3. NAD. Cardiovascular exam: Regular rate and rhythm, no murmur, rub or gallop. Respiratory exam: Clear to auscultation bilaterally. No wheezes or stridor. Abdominal exam: Soft, nontender, nondistended, normal bowel sounds. No peritoneal signs. Back: Mild tenderness palpation over the left paraspinous musculature in the lumbar region. No point tenderness. Negative straight leg bilaterally. 5/5 DF, PF, EHL bilaterally. Normal sensation to light touch throughout. Extremity: No clubbing, cyanosis, or edema. Test Results: CBC is normal. Chem-7 is more for glucose 151. UA is negative. CT flank shows no acute disease. Emergency Department Course and Treatment: Patient was given Toradol and Zofran IV. She got minimal relief. She is given a dose of oxycodone p.o. Treatment Plan: Patient will be discharged with prescription for oxycodone. Instructed to follow-up with Dr. Brambila in 3-5 days if not improving. Return to the emergency department for any worsening symptoms. Disposition: To home in improved and stable condition. Impression: 1. Left flank pain, uncertain cause. This note was generated with Corebook dictation software. It may contain incorrect words, spelling, and punctuation that were not noted in review of the chart prior to signing ED Disposition - Plan for ED Patient: Disposition: Home or Assisted Living Chief Complaint: Back Instructions: ED Flank Pain Uncertain Cause Prescriptions: Oxycodone HCl/Acetaminophen [Percocet 5/325] 1 tablet PO Q6H PRN PRN 5 Days #20 tablet PRN Reason: Pain Naproxen [Naprosyn] 500 mg PO BID #20 tablet Referrals: Cara Brambila DO [Primary Care Provider] - 3-5 Days if not improving
== END 2018-06-30 20:21 | disposition home or self-care (01) ==
LOC: ED 17:11
PROVIDERS: Emergency Provider Emergency Medicine; Family Provider Family Medicine; PCP Family Medicine
DX: R10.9 Unspecified abdominal pain (principal); M54.9 Dorsalgia, unspecified; R11.0 Nausea; R19.7 Diarrhea, unspecified; R01.1 Cardiac murmur, unspecified; E11.9 Type 2 diabetes mellitus without complications; I10 Essential (primary) hypertension; E78.00 Pure hypercholesterolemia, unspecified; E11.42 Type 2 diabetes mellitus with diabetic polyneuropathy; F41.9 Anxiety disorder, unspecified; Z85.3 Personal history of malignant neoplasm of breast; Z79.84 Long term (current) use of oral hypoglycemic drugs; Z79.899 Other long term (current) drug therapy
CPT/HCPCS: 74176; 80048; 81001; 85025; 96361; 96374; 96375; 99283; J7030; A4216; J2405

== ENCOUNTER 2018-09-21 11:00 | Outpatient (RCR) | payer MEDICAID, SELFPAY | END 2018-09-22 23:59 | LOC: DC 11:00 | PROVIDERS: Family Provider Family Medicine; PCP Family Medicine; Visit Provider Specialist | DX: E11.9 Type 2 diabetes mellitus without complications (principal); E66.01 Morbid (severe) obesity due to excess calories; Z68.43 Body mass index [BMI] 50.0-59.9, adult | CPT/HCPCS: 97802; G0108 ==

== ENCOUNTER 2018-10-03 09:19 | Outpatient (RCR) | payer MEDICAID, SELFPAY ==
[2018-09-13 07:41] VITALS: BMI 53.2
== END 2018-10-23 23:59 ==
LOC: DC 09:19
PROVIDERS: Family Provider Family Medicine; PCP Family Medicine; Visit Provider Specialist
DX: E11.9 Type 2 diabetes mellitus without complications (principal); E66.01 Morbid (severe) obesity due to excess calories; Z68.43 Body mass index [BMI] 50.0-59.9, adult; Z71.3 Dietary counseling and surveillance
CPT/HCPCS: 97803

== ENCOUNTER → 2018-10-25 08:42 | Outpatient (CLI) | payer MEDICAID, SELFPAY ==
[2018-09-13 07:41] VITALS: BMI 53.2
[2018-10-19 09:33] VITALS: BMI 53.2
--- NOTE | 2018-10-25 08:55 | BD_ITS ---
STUDY: DUAL ENERGY X-RAY ABSORPTIOMETRY / DXA REASON FOR EXAM: Female, 58 years old. Early menopause. No loss of height. TECHNIQUE: Bone Mineral Density (BMD) measurements of lumbar spine and bilateral hips were obtained. COMPARISON: Comparison is made with prior study dated December 16, 2011. FINDINGS: Lumbar Spine (L1-L4): g/cm2 (1.456) / T-score (2.3) / Z-score (3.2) Findings are suggestive of normal bone density with a low fracture risk. Left Femur Total: g/cm2 (1.170) / T-score (1.3) / Z-score (2.0) Left Femoral Neck: g/cm2 (0.907) / T-score (-0.9) / Z-score (0.1) Right Femur Total: g/cm2 (1.153) / T-score (1.2) / Z-score (1.9) Right Femoral Neck: g/cm2 (0.981) / T-score (-0.4) / Z-score (0.7) The T-Scores on the most recent prior examination were: Lumbar Spine (L1-L4): There has been worsening of bone density since the previous examination. Left Femur Total: which represents a worsening of 14.6%. Right Femur Total: which represents a worsening of 17.0%. BD/Dexa Bone Density Study IMPRESSION: The patient is considered normal as outlined below according to World Samir Organization (WHO) criteria with a low fracture risk. There has been worsening of bone density since the previous examination. Reference Information: The T-score is the number of standard deviations above or below the standard which is normal for young adults at their peak bone mineral density. The World Health Organization (WHO) interprets the T-scores as follows: Above -1 Normal bone density Between -1 and -2.5 Osteopenia Equal to / or below -2.5 Osteoporosis As a practical clinical guideline, osteopenia may be graded as follows: Mild -1 through -1.5 Moderate -1.6 through -2.0 Severe -2.1 through -2.4 The Z-score is the number of standard deviations above or below age-matched controls. A Z-score of less than -1.5 would be considered abnormal. References: 1. NIH Osteoporosis and Related Bone Diseases http://www.osteo.org 2. International Society for Clinical Densitometry http://www.iscd.org 3. National Osteoporosis Foundation http://www.nof.org Electronically Signed: Kojo Mauricio MD at 15:32 EST Tel [phone], Service support ,
== END ==
PROVIDERS: Family Provider Family Medicine; PCP Family Medicine; Referring Provider Obstetrics & Gynecology; Visit Provider Obstetrics & Gynecology
DX: Z78.0 Asymptomatic menopausal state (principal)
CPT/HCPCS: 77080

== ENCOUNTER → 2018-10-26 14:12 | Outpatient (CLI) | payer MEDICAID, SELFPAY ==
[2018-10-19 09:33] VITALS: BMI 53.2
== END ==
PROVIDERS: Family Provider Family Medicine; PCP Family Medicine; Referring Provider Internal Medicine Critical Care Medicine; Visit Provider Internal Medicine Critical Care Medicine
DX: G47.33 Obstructive sleep apnea (adult) (pediatric) (principal)
CPT/HCPCS: 98960; G0463

== ENCOUNTER → 2018-11-06 06:55 | Outpatient (CLI) | payer MEDICAID, SELFPAY ==
[2018-10-31 10:36] VITALS: BMI 53.1
[2018-11-01 10:01] VITALS: BMI 53.1
--- NOTE | 2018-11-06 06:56 | MRI_ITS ---
STUDY: MRI BRAIN WITH AND WITHOUT CONTRAST REASON FOR EXAM: Female, 58 years old. Nausea. Patient has been treated for breast cancer. TECHNIQUE: Standardized multiplanar fat and water weighted pulse sequences were obtained. 11 ml of Gadavist contrast material was administered intravenously for the contrast portion of the examination. COMPARISON: Prior comparable comparison studies are not available for review at this time. FINDINGS: There is mild cerebral atrophy with widening of the extra-axial spaces and ventricular dilatation. There is some abnormal periatrial signal within the white matter. This may be result of caliectasis. Scattered tiny foci of abnormal T2 hyperintensity are visible in the left-sided white matter measuring about 2 3 mm in size. There is no evidence for recent intracranial ischemia or other cause of cytotoxic edema on diffusion weighted imaging (DWI). Normal T2* images of the brain without demonstrated susceptibility artifact. There is no demonstrated hemosiderin stain. Normal bilateral basal ganglia. Normal thalami. There is no extra-axial fluid accumulation. Normal flow voids within the major intracranial circulation suggesting patency by spin echo criteria. Normal venous enhancement. There is no enhancing intra-axial or extra-axial abnormality. Normal sella turcica, pituitary gland, infundibular stalk, optic chiasm and hypothalamus. Normal tectal plate and pineal gland. Normal midbrain, daniel and medulla. Normal cerebellum. There are large basal cisterns. Normal bilateral temporal bones. Normal bilateral internal auditory canals. No demonstrated orbital abnormality, within the constraints of a routine brain study. There is mucoperiosteal inflammatory disease of the paranasal sinuses consistent with mild chronic sinusitis. Normal calvarium and skull base. Normal visualized soft tissue structures. Normal visualized upper cervical spine. MRI/Brain W/WO Contrast IMPRESSION: 1. Involutional changes of the brain, as described above. 2. No MR evidence of metastasis or acute infarct. 3. Nonspecific abnormal signal within the white matter may be related to chemotherapy or leukocytosis. Electronically Signed: Rosy Jenkins MD at 11:00 EST , Service support ,
== END ==
PROVIDERS: Family Provider Family Medicine; PCP Family Medicine; Referring Provider Internal Medicine Medical Oncology; Visit Provider Internal Medicine Medical Oncology
DX: R11.0 Nausea (principal); Z85.3 Personal history of malignant neoplasm of breast
CPT/HCPCS: 70553; A9585

== ENCOUNTER 2018-11-09 09:23 | Outpatient (RCR) | payer MEDICAID, SELFPAY ==
[2018-10-19 09:33] VITALS: BMI 53.2
[2018-11-01 10:01] VITALS: BMI 53.1
== END 2018-11-23 23:59 ==
LOC: DC 09:23
PROVIDERS: Family Provider Family Medicine; PCP Family Medicine; Visit Provider Specialist
DX: E11.9 Type 2 diabetes mellitus without complications (principal); E66.01 Morbid (severe) obesity due to excess calories; Z68.43 Body mass index [BMI] 50.0-59.9, adult; Z71.3 Dietary counseling and surveillance
CPT/HCPCS: 97803

== ENCOUNTER 2018-12-11 11:48 | Day surgery (SDC) | payer MEDICAID, SELFPAY ==
[2018-11-30 12:47] VITALS: BMI 53.5
[2018-12-11 12:44] VITALS: BP 156/72; PULSE 93; RESP 18; TEMP 36.9; O2SAT 98; BMI 53.1
[2018-12-11 12:56] LABS: Bedside Glucose 117 mg/dL (70-110)
--- NOTE | 2018-12-11 13:10 | RAD_ITS ---
PROCEDURE: Caudal block. DATE OF EXAMINATION: December 11, 2018 INDICATION: Female, 58 years old. Chronic low back pain. FLUOROSCOPY TIME (if supplied): (0:10) minutes/seconds. 2 coned down intraoperative views were obtained. Fluoroscopic imaging provided for caudal block. The spinal needle is seen overlying the posterior midportion of the sacrum. RAD/Fluor Guidance for Spine Inj IMPRESSION: Intraoperative imaging provided for caudal block. Electronically Signed: Kojo Mauricio MD at 14:15 EST , Service support ,
[2018-12-11] MEDS: Bupivacaine 0.25% 30 ML Vial (13:31)
[2018-12-11] MEDS: MethylPREDNISolone Acetate 80 MG/ML Vial (13:31)
--- NOTE | 2018-12-11 13:38 | PCM.OPRPT ---
Problem List (1) Degeneration of intervertebral disc of lumbosacral region Status: Chronic (2) Radiculopathy of lumbosacral region Status: Chronic Report of Operation Date of Procedure: 12/11/18 Pre-Operative Diagnosis: Lumbosacral radiculopathy, lumbosacral degenerative disc disease, lumbosacral spinal stenosis Post-Operative Diagnosis: Lumbosacral radiculopathy, lumbosacral degenerative disc disease, lumbosacral spinal stenosis Surgery/Procedure Performed:: Diagnostic/therapeutic caudal epidural steroid injection Description of Surgical Findings:: PROCEDURE: Diagnostic/therapeutic caudal epidural steroid injection PREOPERATIVE DIAGNOSIS: Lumbosacral radiculopathy, lumbosacral degenerative disc disease, lumbosacral spinal stenosis POSTOPERATIVE DIAGNOSIS: Lumbosacral radiculopathy, lumbosacral degenerative disc disease, lumbosacral spinal stenosis ANESTHESIA: MAC COMPLICATIONS: None BLOOD LOSS: Minimal PROCEDURE IN DETAIL: History and physical today was reviewed. Risks and benefits of the procedure were explained. The patient understood, agreed to our procedure, and informed consent was obtained. IV inserted per routine protocol. The patient was taken to the operating room, placed in a prone position with a pillow positioned underneath the abdomen. The lower back and tailbone area was prepped and draped in a sterile fashion using iodine x3 under fluoroscopy guidance AP view and lateral view the caudal space was identified the skin and subcutaneous tissue and size approximately 3 cc of 1% lidocaine using a 25-gauge regular needle under direct physician fluoroscopy using a 22-gauge 3-1/2 inch spinal needle there is advanced via the skin through the sacral hiatus tip of the needle passed through the sacrococcygeal ligament advanced approximately S4 area after negative aspiration for blood or CSF a total of 3 cc of contrast were injected to confirm correct placement of the needle as well as cephalad spread the spread was followed to approximately L5 area after confirmation of AP as well as lateral view and repeated negative aspiration a total of 15 cc of preservative-free 0.125% Marcaine with 80 mg of Depo-Medrol injected easily. The needles were then removed intact. The patient experienced no signs or symptoms intrathecal, intravascular injection. The patient experienced no paraesthesia. The procedure was completed without any apparent difficult, any complication. The patient appeared to tolerate well. ASSESSMENT AND PLAN: This is a 58-year-old female with lumbosacral radiculopathy, lumbosacral degenerative disc disease, lumbosacral spinal stenosis status post diagnostic/therapeutic caudal epidural steroid injection. The patient will continue her current medications. The patient will follow in approximately 2 weeks reevaluation.
[2018-12-11 13:39] VITALS: BP 156/72; BP 93/66; PULSE 91; RESP 16; TEMP 37.1; O2SAT 97
[2018-12-11 13:45] VITALS: BP 113/53; BP 156/72; PULSE 90; RESP 16; O2SAT 96
[2018-12-11 13:50] VITALS: BP 101/50; BP 156/72; PULSE 83; RESP 16; O2SAT 95
[2018-12-11 13:56] VITALS: BP 101/48; BP 156/72; PULSE 85; RESP 16; TEMP 36.7
[2018-12-11 14:18] VITALS: BP 156/72
== END 2018-12-11 14:25 | disposition home or self-care (01) ==
LOC: SDC 11:51 → AC 12:19
PROVIDERS: Family Provider Family Medicine; PCP Family Medicine; Referring Provider Anesthesiology Pain Medicine; Visit Provider Anesthesiology Pain Medicine
PROC: 3E0S3BZ Introduction of Anesthetic Agent into Epidural Space, Percutaneous Approach (ICD-10-PCS; CPT 62282; principal; 2018-12-11 13:05)
DX: M51.17 Intervertebral disc disorders with radiculopathy, lumbosacral region (principal); M48.07 Spinal stenosis, lumbosacral region; E11.9 Type 2 diabetes mellitus without complications; E78.00 Pure hypercholesterolemia, unspecified; G47.30 Sleep apnea, unspecified; K58.9 Irritable bowel syndrome, unspecified; Z85.3 Personal history of malignant neoplasm of breast; Z87.891 Personal history of nicotine dependence
CPT/HCPCS: 62323; 64483; 77003; 82962; J7120; J3490

== ENCOUNTER 2018-12-20 09:30 | Outpatient (RCR) | payer MEDICAID, SELFPAY ==
--- NOTE | 2018-07-05 13:22 | HP.PTEVAL_ITS ---
Patient's Visit Information FLORENTINO GARG is a 58 year old F referred to Physical Therapy by Cara Brambila DO with a diagnosis of INTERVERTEBRAL DISC DISPLACEMENT LUMBAR,INTERVERTRAL DISC DEGENERATION. Date of Evaluation: 07/05/18 Physical Therapist: Iban Villasenor PT, - Visit Plan Frequency: 2x /Week Duration: 4 Weeks Plan: gentle grade postural ex's,DLS program ,LE strength. Patient on chemo medication no modalities - Subjective Subjective: This 58 female presensts to physical therapy with lumbar pain and radicular symptoms. Patient has had lumbar pain for about a year. Pateint has had other comorbities with sepsis about one year ago. Patient has had breast CA s/p lumpectomy which patient is in remission. Patient recieved PT Oct -ary 6 visits. Patient pain was intense unable to stand up from chair,walk. Thus had to go to [facility] . Patient had CATSCAN and blood work.Patient pain located symmtrical lumbar occasionally radicular symptoms in hamstrings.Symptoms worse with bending,standing -10min,lifting,walking. Symptoms bettter with rest. Pain is dscribed as ache ocassionally sharp pain.Denies coughing/sneezing. Denies burning /tingling left foot. H/O bowel obstruction. Possible pain injections. Patient pain affect ADL's ,housework tasks, and QOL. VOCATION: unemployed. SOCIAL: - Pain Bilateral Back Pain Intensity (Out of 10): 3 Pain Intensity Range: 10 - Objective POSTURE:mild foward posture rounded shouders ,anterior tilt. GAIT: ambulates with mild foward posture recciprocal pattten,antalgic gait. NEURO: c/o tingling /parathesia feet,reflexes 1/3 L3-,4-5,L5-S1. SYMMTRIES: alighn. PALAPTION: tender L-S region. MMT: quads/hams 4-/5,hip flexion 3+/5 ,ankle 4/5. FLEXABLITY: hams mod tight,piriformis mod tight - Special Tests L/S Slump test left side: Negative L/S Slump test right side: Negative L/S Left Straight Leg Raise: Negative L/S Right Straight Leg Raise: Negative Lumbar Standing: Flexion - Mechanical Response: No effect Lumbar Standing: Flexion - Symptoms During Testing: Increases Lumbar Standing: Flexion - Symptoms After Testing: Worse Lumbar Standing: Extension - Mechanical Response: No effect Lumbar Standing: Extension - Symptoms During Testing: Increases Lumbar Standing: Extension - Symptoms After Testing: Worse Lumbar Standing: Right Side Glides - Mechanical Response: No effect Lumbar Standing: Right Side [place] - Symptoms During Testing: Abolishes Lumbar Standing: Right Side [place] - Symptoms After Testing: No worse Lumbar Standing: Left Side [place] - Mechanical Response: No effect Lumbar Standing: Left Side [place] - Symptoms During Testing: Abolishes Lumbar Standing: Left Side [place] - Symptoms After Testing: No worse - Goals Goal 1:: Patient to be Independant with HEP Goal Time Frame: 4-6 Weeks Goal 2:: Patient to be Independant with posture for ADL'S Goal Time Frame: 4-6 Weeks Goal 3:: Patient to decrease lumbar pain by 50 % or greater to improve function with ADL'S Goal Time Frame: 4-6 Weeks Goal 4:: Patient improve lumbar ROM for function of recovery Goal Time Frame: 4-6 Weeks Goal 5:: Patient be able to perform ADL'S and housework tasks with min limiations - Rehabilitation Potential Physical Therapy Diagnosis: Patient has lumbar pain along with multiple comorbities to include breast CA ,bowel surgery. with pain decrease strength, loss ROM ,impairs walking ,standing cuases defice with ADLS' and light housework tasks Rehabilitation Potential: Good - Anticipated Interventions Patient/Client Instruction: Educate patient on: Condition, Plan of Care For the Purpose of:: To decrease pain, To increase ROM, To improve muscle performance and motor function, To improve ability to perform ADL's, To increase tolerance to activity/condition/position, To improve ability of physical actions for home/community/work/leisure, To improve health of tissue, To decrease soft tissue restriction, To increase flexibility/ROM, To reduce risk of recurrence, To prevent re-injury, To improve ability to perform tasks related to life management Therapeutic Exercise to Include: Strength training, Body mechanics, Postural training, Flexibilty training, Dynamic Lumbar Stabilization For the Purpose of:: To decrease pain, To increase ROM, To improve muscle performance and motor function, To increase tolerance to activity/condition/ position, To improve performance and independence with ADL's, To improve ability of physical actions for home/community/work/leisure, To improve gait and locomotor functions, To decrease soft tissue restriction, To increase flexibility/ROM, To improve endurance, To assume or resume ADL's, To improve ability to perform tasks related to life management Thank you for the opportunity to evaluate your patient. For Medicare and Medicare HMO plans, please review the plan of care and approve it. It will need to be FAXED BACK to us at [phone] for Medicare purposes. Please let me know if there are questions or concerns regarding this plan of care. Physician Signature: Date:
--- NOTE | 2019-01-25 17:37 | HP.PTDCNRP_ITS ---
HP - Discharge Summary (1) - Patient Information FLORENTINO GARG was seen in my office for initial evaluation on 07/05/18. The following Plan of Care was established for this patient: Initial Frequency: 2x /Week Initial Duration: 4 Weeks - Anticipated Interventions Patient/Client Instruction: Educate patient on: Condition, Plan of Care For the Purpose of:: To decrease pain, To increase ROM, To improve muscle perfor brittany and motor function, To improve ability to perform ADL's, To increase tolerance to activity/condition/position, To improve ability of physical actions for home/community/work/leisure, To improve health of tissue, To decrease soft tissue restriction, To increase flexibility/ROM, To reduce risk of recurrence, To prevent re-injury, To improve ability to perform tasks related to life management Therapeutic Exercise to Include: Strength training, Body mechanics, Postural training, Flexibilty training, Dynamic Lumbar Stabilization For the Purpose of:: To decrease pain, To increase ROM, To improve muscle performance and motor function, To increase tolerance to activity/condition/position, To improve performance and independence with ADL's, To improve ability of physical actions for home/community/work/leisure, To improve gait and locomotor functions, To decrease soft tissue restriction, To increase flexibility/ROM, To improve endurance, To assume or resume ADL's, To improve ability to perform tasks related to life management This patient was last seen in our office 12/20/18. Pertinent comments regarding their Physical therapy will appear below: Patient seen for PT for lumbar pain focusing on DLS,LE strengthening,postural ex's,. Patient had epidural injection. Patient ding wll with managing pain with HEP and exercises. At this point I will be discontinuing this patient from physical therapy. I would be happy to see this patient again in the future if found appropriate by the physician. Thank you! Iban Villasenor, PT, Cert MDT, OCS
== END 2018-12-20 19:00 | disposition home or self-care (01) ==
LOC: PT 09:30
PROVIDERS: Family Provider Family Medicine; PCP Family Medicine; Visit Provider Family Medicine
DX: M51.26 Other intervertebral disc displacement, lumbar region (principal); M51.36 Other intervertebral disc degeneration, lumbar region
CPT/HCPCS: 97110; 97161; 97530; 97802

== ENCOUNTER 2018-12-21 08:00 | Outpatient (RCR) | payer MEDICAID, SELFPAY ==
[2018-11-24 01:27] VITALS: BMI 53.1
== END 2018-12-21 23:59 ==
LOC: DC 08:00
PROVIDERS: Family Provider Family Medicine; PCP Family Medicine; Visit Provider Specialist
DX: E11.9 Type 2 diabetes mellitus without complications (principal); E66.01 Morbid (severe) obesity due to excess calories; Z68.43 Body mass index [BMI] 50.0-59.9, adult; Z71.3 Dietary counseling and surveillance
CPT/HCPCS: 97803; G0108

== ENCOUNTER → 2019-04-24 09:12 | Outpatient (CLI) | payer OTHER, SELFPAY ==
[2019-04-09 09:25] VITALS: BMI 53.1
--- NOTE | 2019-04-24 09:18 | BI_ITS ---
MAMMOGRAPHY - BILATERAL DIAGNOSTIC REASON FOR EXAM: Female, 59 years old. Six-month follow-up for postoperative calcifications. PERTINENT HISTORY: Personal history of breast cancer. Prior right lumpectomy with radiation and chemotherapy. History of mother with breast cancer. TECHNIQUE: Digital bilateral breast umu (3D mammographic acquisition) in the CC and MLO projections. 2-D mediolateral oblique (MLO) and craniocaudad (CC) views of both breasts were obtained. CAD: Full Field Digital Mammography with Computer Added Detection was performed. COMPARISON: Comparison is made with prior examination dated October 06, 2018 and July 25, 2014. FINDINGS: Breast Composition: The breasts are almost entirely fatty. The patient is status post lumpectomy with postoperative scarring in the deep upper medial aspect of the right breast. Coarse calcifications are seen at the operative site as well as breast deformity and skin thickening. Coarse calcifications are also seen in the rectal region of the right breast. These are progressed as compared to prior study and most likely reveal dense postoperative changes. No other significant abnormalities are identified. BI/DIAG MAMM W/CAD, BILAT IMPRESSION: Stable bilateral diagnostic mammogram. One year follow-up recommended. (A) ASSESSMENT CATEGORY: BIRADS Category 2: Benign. A letter regarding these results will be sent to the patient by the facility within 30 days. Approximately 10% of breast cancers are not detected by mammography. A normal mammogram should not delay biopsy of a clinically suspicious abnormality. Electronically Signed: Kojo Mauricio, at 13:40 EDT , Service support ,
== END ==
PROVIDERS: Family Provider Family Medicine; PCP Family Medicine; Referring Provider Surgery; Visit Provider Surgery
DX: Z85.3 Personal history of malignant neoplasm of breast (principal); Z80.3 Family history of malignant neoplasm of breast
CPT/HCPCS: 77062; 77066; G0279

== ENCOUNTER → 2019-08-17 11:38 | Outpatient (CLI) | payer OTHER, SELFPAY ==
[2019-08-17 08:06] VITALS: BMI 53.2
--- NOTE | 2019-08-17 08:10 | LES_PTH ---
PATIENT: FLORENTINO GARG LOC: [facility] U#:[id number] AGE/SX: 65/F ROOM: RE08/17/[address]: Dr. Venkat Plascencia MD : [id number] BED: DIS: SPEC #: [id number] RECD: 08/17/19 11:31 STATUS: SMOOTH SALOMÓN #: [id number] SURAJ: 08/17/19 08:[address]: Venkat Plascencia DEPT: SURGICAL PATHOLOGY RECD BY: James Kirk ENTERED: 08/17/19 13:18 SP TYPE: Lesion OTHR DR: Dr. Cara Brambila, DO Tissues: Skin of breast, NOS Procedures: Surgery Specimen Level IV HEADER OPERATION: Excisional breast lesion removal PRE-OP DIAGNOSIS: Left breast lesion TISSUE SUBMITTED: Excision left breast lesion MICROSCOPIC DIAGNOSIS Left breast lesion, excisional biopsy: Consistent with dermatofibroma. SJ:pat 08/20/19 COMMENT Case has been reviewed in consultation with Dr. Oleary who concurs with the above diagnosis. IDC:AM MICROSCOPIC DESCRIPTION Slides are reviewed. GROSS DESCRIPTION Received in fixative is one container labeled with the patient's name and designated left breast lesion. The specimen consists of a piece of [place]-white skin measuring 0.8 x 0.5 x 0.2 cm. The specimen is inked and submitted entirely in one cassette. It will be sectioned at the time of embedding. / SJ:pat 08/17/19 TC:1 CPT: 19165
== END ==
PROVIDERS: Family Provider Family Medicine; PCP Family Medicine; Referring Provider Surgery; Visit Provider Surgery
DX: N64.89 Other specified disorders of breast (principal)
CPT/HCPCS: 88305

== ENCOUNTER → 2019-09-05 11:34 | Outpatient (CLI) | payer OTHER, SELFPAY ==
[2019-08-17 08:06] VITALS: BMI 53.2
--- NOTE | 2019-09-05 11:39 | RAD_ITS ---
STUDY: X-RAY CHEST REASON FOR EXAM: Female, 59 years old. Back pain, weakness, cough and shortness of breath for over a week. TECHNIQUE: 2 views COMPARISON: Prior chest radiograph of February 13, 2019 FINDINGS: The lungs are clear and expanded. There is no demonstrated pleural abnormality. Normal size heart. Normal mediastinum and joaquin. Normal visualized pulmonary arteries. Normal visualized aortic arch and descending thoracic aorta. There are diffuse degenerative changes of the visualized thoracic spine. There is degenerative osteoarthritis of the bilateral shoulders. There is no demonstrated abnormality of the visualized soft tissue structures of the upper abdomen. RAD/Chest PA and Lateral IMPRESSION: No acute cardiopulmonary findings or changes. Negative for new consolidation, focal atelectasis, cardiomegaly or pleural effusion. Electronically Signed: Maria M Ghosh MD at 17:47 EST , Service support ,
== END ==
PROVIDERS: Family Provider Family Medicine; PCP Family Medicine; Referring Provider Family Medicine; Visit Provider Family Medicine
DX: R06.02 Shortness of breath (principal); R06.00 Dyspnea, unspecified
CPT/HCPCS: 71046

== ENCOUNTER → 2019-10-05 07:06 | Outpatient (CLI) | payer OTHER, SELFPAY ==
[2019-08-17 08:06] VITALS: BMI 53.2
[2019-10-05 07:35] LABS: Absolute Lymphocyte Count 1.36 X10^3/uL (0.83-4.51); Absolute Neutrophil Count 3.2 X10^3/uL (2.0-7.7); Basophil# 0.04 X10^3/uL; Basophil% 0.8 % (0-1); Eosinophil# 0.08 X10^3/uL; Eosinophils% 1.5 % (0-5); Hematocrit 38.6 % (37-47); Hemoglobin 11.8 g/dL (12.0-15.0); Lymphocyte # 1.36 X10^3/ul (4.0); Lymphocyte % 26.1 % (19-41); Mean Corp Hgb Conc 30.6 g/dL (32-36); Mean Corpuscular Hgb 29.8 pg (27.0-32.0); Mean Corpuscular Volume 97.5 fL (81-99); Mean Platelet Vol. 10.9 fl (6.2-12.0); Monocyte# 0.49 X10^3/uL; Monocyte% 9.4 % (0-10); NRBC Flagged by Analyzer 0 % (0-5); Neutrophil # 3.22 X10^3/uL (2.7-7.7); Neutrophil % 61.8 % (47-70); Platelet Count 149 K/mm3 (150-450); RBC Distribution Width SD 49.8 fl (35.1-43.9); Red Blood Count 3.96 M/mm3 (4.2-5.4); White Blood Count 5.2 K/mm3 (4.4-11.0)
[2019-10-05 08:15] LABS: ALB/GLOB Ratio 0.8 RATIO (0.9-2.4); AST(SGOT) 22 U/L (15-37); Alanine Aminotransfer ALT/SGPT 24 U/L (13-56); Alkaline Phosphatase 64 U/L (45-117); Anion Gap 4 (5-15); BUN 12 mg/dL (7-18); BUN/Creat Ratio 19.7 RATIO (10-20); Calcium,Total 8.4 mg/dL (8.5-10.1); Chloride 102 mmol/L (98-107); Cholesterol 151 mg/dL (200); Creatinine, Serum 0.61 mg/dL (0.55-1.02); EST Glomerular Filtration Rate 108 mL/min (>60); Est Glom Filt Rate - Afr Amer 130 mL/min (>60); Glucose 159 mg/dL (74-106); High Density Lipoprotein 60 mg/dL; Potassium 4.2 mmol/L (3.5-5.1); Sodium Level 137 mmol/L (136-145); Triglycerides 93 mg/dL; Very Low Density Lipoprotein 19 mg/dL (5-40)
[2019-10-05 08:41] LABS: Vitamin D,25 Hydroxy 45.3 ng/mL (29.95-100.01)
[2019-10-05 08:42] LABS: BNP,B-Type NATRIURETIC PEPTIDE 11.5 pg/mL (0-100)
== END ==
PROVIDERS: Family Provider Family Medicine; PCP Family Medicine; Referring Provider Family Medicine; Visit Provider Family Medicine
DX: Z51.81 Encounter for therapeutic drug level monitoring (principal); E11.9 Type 2 diabetes mellitus without complications; E55.9 Vitamin D deficiency, unspecified; E78.5 Hyperlipidemia, unspecified; D64.9 Anemia, unspecified; R06.00 Dyspnea, unspecified; R60.0 Localized edema
CPT/HCPCS: 36415; 80053; 80061; 82306; 83880; 85025

== ENCOUNTER → 2019-11-28 08:32 | Outpatient (CLI) | payer OTHER, SELFPAY ==
[2019-11-22 07:10] VITALS: BMI 53.2
--- NOTE | 2019-11-28 09:20 | EKG12_ITS ---
Test Reason : CHEST DISCOMFORT Blood Pressure : / mmHG Vent. Rate : 091 BPM Atrial Rate : 091 BPM P-R Int : 196 ms QRS Dur : 090 ms QT Int : 360 ms P-R-T Axes : 062 017 015 degrees QTc Int : 442 ms Normal sinus rhythm Possible Left atrial enlargement Low voltage QRS Septal infarct , age undetermined Abnormal ECG Confirmed by TULIO SUMMERS ([id number]), commissioning editor NELLY PEÑALOZA ([id number]) on 11/30/2019 9:22:09 AM Referred By: Varghese Engle Confirmed By:TULIO SUMMERS
[2019-11-28 09:21] VITALS: PULSE 104; PULSE 105; PULSE 107; PULSE 108; PULSE 110; PULSE 112; PULSE 89; O2SAT 91; O2SAT 92; O2SAT 93; O2SAT 94; O2SAT 97; O2SAT 98
--- NOTE | 2019-11-28 09:23 | CPS ---
After testing patient stated she was having chest discomfort that radiates behind her shoulder. Patient stated it worsened with walking. Called Dr. Gamino and order for outpatient EKG given. Gave copy to Dr. Gamino to sign off EKG and verbal order given to send patient home.
--- NOTE | 2019-11-28 13:40 | PCM.PSN.6M ---
PSN 6 Minute Walk Test - 6 Minute Walk Test 6 Minute Walk Test: 6 Minute Walk Test PSN:6-Minute Walk Test Start: 11/28/19 09:20 Freq: Status: Active Protocol: RESP.6MINW Document 11/28/19 09:21 [facility] (Rec: 11/28/19 09:25 [facility] [id number]) 6 Minute Walk Test Date Performed 11/28/19 Time Performed 08:45 Height 5 ft 1 in Weight: 130.181 kg Weight in Pounds 287.[address]: Varghese Engle Assistive device used: None Pre-test Oxygen Delivery Method Room Air Pulse Ox (%) 98 Pulse Rate (60-100 beats/min) 89 Dyspnea Margie Scale (0-10) 2 Exertion Margie Scale (6-20) 11 1st minute Oxygen Delivery Method Room Air Pulse Ox (%) 93 Pulse Rate (60-100 beats/min) 104 H 2nd minute Oxygen Delivery Method Room Air Pulse Ox (%) 92 Pulse Rate (60-100 beats/min) 105 H 3rd minute Oxygen Delivery Method Room Air Pulse Ox (%) 91 Pulse Rate (60-100 beats/min) 107 H 4th minute Oxygen Delivery Method Room Air Pulse Ox (%) 94 Pulse Rate (60-100 beats/min) 112 H 5th minute Oxygen Delivery Method Room Air Pulse Ox (%) 91 Pulse Rate (60-100 beats/min) 108 H 6th minute Oxygen Delivery Method Room Air Pulse Ox (%) 91 Pulse Rate (60-100 beats/min) 110 H Post-test Oxygen Delivery Method Room Air Pulse Ox (%) 97 Pulse Rate (60-100 beats/min) 89 Dyspnea Margie Scale (0-10) 7 Exertion Margie Scale (6-20) 13 Full Laps Walked 16 Partial Lap, Number of Tiles Walked 15 Total Distance Walked (ft) 959 11/28/19 09:23 Cardiopulmonary Services by Selina Parkinson After testing patient stated she was having chest discomfort that radiates behind her shoulder. Patient stated it worsened with walking. Called Dr. Gamino and order for outpatient EKG given. Gave copy to Dr. Gamino to sign off EKG and verbal order given to send patient home. Initialized on 11/28/19 09:23 - END OF NOTE - Interpretation Interpretation: The patient was able to ambulate 959 feet over the course of 6 minutes on room air with no assistive devices or breaks. The patient did have a significant desaturation from a baseline of 98% to as low as 91%. Patient had a peak heart rate of 112 bpm. Patient did develop some chest pain associated with the walk. EKG was reviewed by myself and showed no ST elevations. - Recommendations Recommendations: No supplemental oxygen is indicated at this time, but will need to be followed closely given level of desaturation.
== END ==
PROVIDERS: PCP Family Medicine; Referring Provider Internal Medicine Critical Care Medicine; Visit Provider Internal Medicine Critical Care Medicine
DX: R06.02 Shortness of breath (principal)
CPT/HCPCS: 93005; 94618

== ENCOUNTER → 2019-12-04 08:50 | Outpatient (CLI) | payer OTHER, SELFPAY ==
[2019-11-22 07:10] VITALS: BMI 53.2
--- NOTE | 2019-12-05 13:48 | PFT ---
INTRODUCTION: The patient is a 59-year-old female that presents for pulmonary function studies secondary to a diagnosis of shortness of breath. Respiratory therapy reports good patient effort. Bronchodilators were used during testing. INTERPRETATION: Forced expiration spirometry demonstrates no evidence of a large airways obstructive ventilatory defect. There was no significant response to aerosolized bronchodilators. Spirograms are of fair quality and plateau normally. Body plethysmography was performed and reveals a decreased TLC to 3.28 L, 76% of predicted, indicative of a mild restrictive ventilatory impairment. Diffusing capacity by single breath CO is reduced at 53% of predicted. IMPRESSION: Mild restrictive ventilatory impairment with disproportionate reduction in diffusing capacity.
== END ==
PROVIDERS: PCP Family Medicine; Referring Provider Internal Medicine Critical Care Medicine; Visit Provider Internal Medicine Critical Care Medicine
DX: R06.02 Shortness of breath (principal)
CPT/HCPCS: 94060; 94726; 94729

== ENCOUNTER → 2019-12-25 19:57 | Outpatient (CLI) | payer OTHER, SELFPAY ==
[2019-11-22 07:10] VITALS: BMI 53.2
[2019-12-19 13:23] VITALS: BMI 53.4
== END ==
PROVIDERS: PCP Family Medicine; Referring Provider Internal Medicine Critical Care Medicine; Visit Provider Internal Medicine Critical Care Medicine
DX: G47.33 Obstructive sleep apnea (adult) (pediatric) (principal)
CPT/HCPCS: 95811

== ENCOUNTER → 2020-01-25 13:59 | Outpatient (CLI) | payer OTHER, SELFPAY ==
[2020-01-02 09:38] VITALS: BMI 53.3
== END ==
PROVIDERS: PCP Family Medicine; Referring Provider Nurse Practitioner Acute Care; Visit Provider Nurse Practitioner Acute Care
DX: Z46.89 Encounter for fitting and adjustment of other specified devices (principal)

== ENCOUNTER → 2020-01-28 12:15 | Outpatient (CLI) | payer OTHER, SELFPAY ==
[2020-01-22 10:21] VITALS: BMI 52.5
== END ==
PROVIDERS: PCP Family Medicine; Referring Provider Nurse Practitioner Acute Care; Visit Provider Nurse Practitioner Acute Care
DX: Z46.89 Encounter for fitting and adjustment of other specified devices (principal)

== ENCOUNTER → 2020-02-22 07:23 | Outpatient (CLI) | payer OTHER, SELFPAY ==
[2020-01-22 10:21] VITALS: BMI 52.5
[2020-02-22 08:13] LABS: Absolute Lymphocyte Count 1.65 X10^3/uL (0.83-4.51); Absolute Neutrophil Count 4.1 X10^3/uL (2.0-7.7); Basophil# 0.03 X10^3/uL; Basophil% 0.5 % (0-1); Eosinophil# 0.17 X10^3/uL; Eosinophils% 2.6 % (0-5); Hematocrit 35.9 % (37-47); Lymphocyte # 1.65 X10^3/ul (4.0); Lymphocyte % 25.3 % (19-41); Mean Corp Hgb Conc 30.6 g/dL (32-36); Mean Corpuscular Hgb 29.4 pg (27.0-32.0); Mean Platelet Vol. 10.8 fl (6.2-12.0); Monocyte# 0.49 X10^3/uL; Monocyte% 7.5 % (0-10); NRBC Flagged by Analyzer 0 % (0-5); Neutrophil # 4.14 X10^3/uL (2.7-7.7); Neutrophil % 63.6 % (47-70); Platelet Count 195 K/mm3 (150-450); RBC Distribution Width CV 13.9 % (11.6-14.6); RBC Distribution Width SD 48.8 fl (35.1-43.9); Red Blood Count 3.74 M/mm3 (4.2-5.4); White Blood Count 6.5 K/mm3 (4.4-11.0)
[2020-02-22 08:27] LABS: BNP,B-Type NATRIURETIC PEPTIDE 10.5 pg/mL (0-100)
[2020-02-22 08:48] LABS: ALB/GLOB Ratio 0.7 RATIO (0.9-2.4); AST(SGOT) 41 U/L (15-37); Alanine Aminotransfer ALT/SGPT 24 U/L (13-56); Alkaline Phosphatase 92 U/L (45-117); Anion Gap 7 (5-15); BUN 13 mg/dL (7-18); BUN/Creat Ratio 22.2 RATIO (10-20); Bilirubin, Direct 0.13 mg/dL (0.00-0.30); Calcium,Total 9.2 mg/dL (8.5-10.1); Chloride 100 mmol/L (98-107); Cholesterol 160 mg/dL (200); Creatinine, Serum 0.59 mg/dL (0.55-1.02); EST Glomerular Filtration Rate 112 mL/min (>60); Est Glom Filt Rate - Afr Amer 136 mL/min (>60); Globulin 4.5 g/dL (2.2-4.2); Glucose 135 mg/dL (74-106); High Density Lipoprotein 55 mg/dL; Potassium 3.8 mmol/L (3.5-5.1); Protein, Total 7.5 g/dL (6.4-8.2); Sodium Level 140 mmol/L (136-145); Triglycerides 78 mg/dL; Very Low Density Lipoprotein 16 mg/dL (5-40)
== END ==
LOC: LAB.FUTURE 07:26 → LAB 07:27
PROVIDERS: Internal Medicine Cardiovascular Disease; PCP Family Medicine; Referring Provider Family Medicine; Visit Provider Family Medicine
DX: R06.00 Dyspnea, unspecified (principal); R60.9 Edema, unspecified; I50.810 Right heart failure, unspecified; K76.0 Fatty (change of) liver, not elsewhere classified; R79.89 Other specified abnormal findings of blood chemistry; E11.65 Type 2 diabetes mellitus with hyperglycemia; E78.5 Hyperlipidemia, unspecified
CPT/HCPCS: 36415; 80053; 80061; 82248; 83880; 85025

== ENCOUNTER → 2020-02-29 13:50 | Outpatient (CLI) | payer OTHER, SELFPAY ==
[2020-01-22 10:21] VITALS: BMI 52.5
--- NOTE | 2020-02-29 13:53 | RAD_ITS ---
STUDY: X-RAY - LUMBAR SPINE REASON FOR EXAM: Female, 59 years old. Low back pain, more toward left side -- pt states it is making her sob and can feel it her diaphragm TECHNIQUE: 5 view(s) of the lumbar spine were obtained including oblique views. COMPARISON: None FINDINGS: Normal lumbar lordosis. There is no substantial scoliosis. There is a normal alignment of the vertebrae. There is multilevel endplate spondylosis of the lumbar vertebrae. There is multi-level degenerative disc disease with multi-level disc space narrowing. Facet joint osteoarthritis. There is atherosclerotic calcification of the abdominal aorta without a demonstrated aneurysm. RAD/L/S Spine Min 4 Views IMPRESSION: Degenerative changes of the spine, as detailed above. Electronically Signed: Kojo Mauricio, at 14:47 EDT , Service support ,
== END ==
PROVIDERS: PCP Family Medicine; Referring Provider Family Medicine; Visit Provider Family Medicine
DX: M48.061 Spinal stenosis, lumbar region without neurogenic claudication (principal); M51.26 Other intervertebral disc displacement, lumbar region; M51.36 Other intervertebral disc degeneration, lumbar region
CPT/HCPCS: 72110

== ENCOUNTER 2020-03-20 09:54 | Observation (INO) | payer OTHER, SELFPAY ==
[2020-01-22 10:21] VITALS: BMI 52.5
[2020-03-20] VITALS (12 sets, daily range): BP systolic 119–162; BP diastolic 57–67; PULSE 87–103; RESP 12–24; TEMP 36.2–37.2; O2SAT 92–100; BMI 54.1; BMI 54.2
--- NOTE | 2020-03-20 10:13 | RAD_ITS ---
STUDY: X-RAY CHEST REASON FOR EXAM: Female, 60 years old. INCREASED SHORTNESS OF BREATH, DRY COUGH, LOWER LEG EDEMA X SEVERAL MONTHS TECHNIQUE: Single AP portable view of the chest. COMPARISON: Comparison is made with prior study dated comparison is made with prior study dated September 05, 2019. FINDINGS: EKG electrodes are seen. The lungs are clear and expanded. There is no demonstrated pleural abnormality. Normal size heart. Normal mediastinum and joaquin. Normal visualized pulmonary arteries. Normal visualized aortic arch and descending thoracic aorta. Normal visualized thoracic spine. Normal visualized ribs, clavicles, and shoulders. There is no demonstrated abnormality of the visualized soft tissue structures of the upper abdomen. RAD/Chest 1 View (Portable) IMPRESSION: Normal x-ray examination of the chest. Electronically Signed: Kojo Mauricio, at 11:18 EDT , Service support ,
--- NOTE | 2020-03-20 10:14 | EKG12_ITS ---
Test Reason : CP SOB Blood Pressure : / mmHG Vent. Rate : 104 BPM Atrial Rate : 104 BPM P-R Int : 188 ms QRS Dur : 086 ms QT Int : 316 ms P-R-T Axes : 059 023 001 degrees QTc Int : 415 ms Sinus tachycardia Low voltage QRS Septal infarct , age undetermined T wave abnormality, consider anterior ischemia Abnormal ECG Confirmed by TULIO SUMMERS ([id number]), editorial assistant PRASAD LYNN ([id number]) on 03/24/2020 11:29:09 AM Referred By: MONICA Confirmed By:TULIO SUMMERS
--- NOTE | 2020-03-20 10:16 | ED.DCSUM_ITS ---
- ER Visit Summary Date of Service: 03/20/20 Chief Complaint: Chest pain, Shortness of breath, edema History of Present Illness: The patient is a 60 F presenting with chest pain, shortness of breath and edema. She states this started 2 months ago but has been progressively worsening. She states she is unable to walk without getting very short of breath. She has had a cough since August. She denies fever. She states she has intermittent chest pain and heaviness with walking. She saw Dr. Arreguin in December. She states she had an echocardiogram and stress test ordered that were delayed due to coronavirus and are now scheduled for March. She called her primary care physician and they started her on Lasix 2 weeks ago for increasing lower extremity swelling. She states this has not helped. She called her primary care physician today and they advised her to come to the ED. Physical Examination: Vitals are stable. Heart rate 102. Patient is afebrile. Alert no acute distress. HEENT exam is unremarkable. Neck is supple. Lungs are diminished breath sounds, wheezing bilaterally. Heart is regular and tachycardic Abdomen is soft nontender nondistended. Extremities symmetric edema Skin is warm and dry. No focal neurologic deficit. Remainder of exam is unremarkable. Emergency Department Course and Treatment: EKG shows sinus tachycardia rate of 104. CBC normal except hemoglobin 10.1. Chemistries normal except glucose 203. Troponin is negative. D-dimer 1.59. Chest xray shows normal x-ray examination of the chest. Due to elevated d-dimer, CTA chest was obtained and shows no evidence of pulmonary embolism. Postoperative changes seen in the right breast. Due to her exertional shortness of breath and chest pain discussed with the hospitalist for observation. Disposition: Observation Impression: Chest pain This note was generated with [employer] dictation software. It may contain incorrect words, spelling, and punctuation that were not noted in review of the chart p rior to signing ED Disposition - Plan for ED Patient: Disposition: Acute Care Hospital [facility]
[2020-03-20 10:58] LABS: Absolute Lymphocyte Count 1.21 X10^3/uL (0.83-4.51); Absolute Neutrophil Count 3.8 X10^3/uL (2.0-7.7); Basophil# 0.04 X10^3/uL; Basophil% 0.7 % (0-1); Eosinophil# 0.14 X10^3/uL; Eosinophils% 2.4 % (0-5); Hematocrit 33.6 % (37-47); Hemoglobin 10.1 g/dL (12.0-15.0); Lymphocyte # 1.21 X10^3/ul (4.0); Lymphocyte % 20.9 % (19-41); Mean Corp Hgb Conc 30.1 g/dL (32-36); Mean Corpuscular Hgb 29.4 pg (27.0-32.0); Mean Corpuscular Volume 97.7 fL (81-99); Mean Platelet Vol. 10.8 fl (6.2-12.0); Monocyte# 0.49 X10^3/uL; Monocyte% 8.5 % (0-10); NRBC Flagged by Analyzer 0 % (0-5); Neutrophil # 3.84 X10^3/uL (2.7-7.7); Neutrophil % 66.3 % (47-70); Platelet Count 164 K/mm3 (150-450); RBC Distribution Width CV 14.2 % (11.6-14.6); RBC Distribution Width SD 50.6 fl (35.1-43.9); Red Blood Count 3.44 M/mm3 (4.2-5.4); White Blood Count 5.8 K/mm3 (4.4-11.0)
[2020-03-20 11:08] LABS: Anion Gap 4 (5-15); BUN 11 mg/dL (7-18); BUN/Creat Ratio 17.5 RATIO (10-20); Calcium,Total 8.6 mg/dL (8.5-10.1); Chloride 103 mmol/L (98-107); Creatinine, Serum 0.63 mg/dL (0.55-1.02); D-Dimer Quantitative (DVT/PE) 1.59 FEU/ug/m (0.27-0.49); EST Glomerular Filtration Rate 103 mL/min (>60); Est Glom Filt Rate - Afr Amer 125 mL/min (>60); Estimated Creatinine Clearance 73.45 ml/min; Glucose 203 mg/dL (74-106); Potassium 3.8 mmol/L (3.5-5.1); Sodium Level 140 mmol/L (136-145)
--- NOTE | 2020-03-20 11:08 | CT_ITS ---
STUDY: CTA CHEST REASON FOR EXAM: Female, 60 years old. SOB, elevated D-dimer, edema. Hx breast cancer with right lumpectomy, chemotherapy and amp; radiation, hypertension, obstructive sleep apnea. RADIATION DOSAGE (If Supplied By Facility): CTDIvol = ( 31.58 ) mGy, DLP = ( 750.45 ) mGycm TECHNIQUE: The examination was performed with the intravenous administration of 100mL Isovue 370. Post-processing of the angiographic images was performed, with multiplanar reformation and 3D reconstruction. Individualized dose optimization techniques were used for this CT. COMPARISON: None. FINDINGS: Small benign-appearing bilateral axillary lymph nodes. Patient is status post right lumpectomy with the 2.4 cm x 3.5 cm fluid collection most likely secondary to prior lumpectomy and seroma. Normal enhancement of the main pulmonary artery and right and left pulmonary arteries. Normal enhancement of the bilateral peripheral pulmonary arteries. There is no demonstrated pulmonary embolism. Normal thoracic aorta and visualized great vessels. There is no demonstrated aortic dissection. Normal heart and pericardium. There are visualized mediastinal lymph nodes, which are within normal size limits, and with normal morphology. Normal hilar regions. Normal visualized trachea and bronchi. The lungs are well expanded. Normal pulmonary parenchyma. Normal pleura. Normal chest wall structures. Normal osseous structures. Normal visualized upper abdomen. CT/CTA Chest W/WO Contrast IMPRESSION: No evidence of pulmonary embolism. Postoperative changes seen in the right breast. Electronically Signed: Kojo Mauricio, at 12:06 EDT , Service support ,
--- NOTE | 2020-03-20 11:08 | ED.RN ---
lab called pt d-dimer 1.59. dr tabares
[2020-03-20] MEDS: Aspirin 325 MG Tablet PO (12:31)
--- NOTE | 2020-03-20 12:59 | EKG12_ITS ---
Test Reason : CP Blood Pressure : / mmHG Vent. Rate : 089 BPM Atrial Rate : 089 BPM P-R Int : 188 ms QRS Dur : 092 ms QT Int : 350 ms P-R-T Axes : 060 018 -01 degrees QTc Int : 425 ms Normal sinus rhythm Low voltage QRS Septal infarct , age undetermined Abnormal ECG When compared with ECG of 20-MAR-2020 10:10, MANUAL COMPARISON REQUIRED, DATA IS UNCONFIRMED Confirmed by DANIEL ROMANO, GERMANIA ([id number]), editor continuity and script NELLY PEÑALOZA ([id number]) on 03/25/2020 2:00:38 PM Referred By: XI Confirmed By:GERMANIA SANCHEZ MD
--- NOTE | 2020-03-20 15:51 | HP.PCM_ITS ---
Problem List (1) Chest pain Status: Acute Qualifiers: (2) Morbid obesity with BMI of 50.0-59.9, adult Status: Chronic (3) Hypertension Status: Chronic (4) DM (diabetes mellitus), type 2, uncontrolled Status: Chronic Comment: new diagnosis......pt states she was told she was borderline in the past (5) Obstructive sleep apnea Status: Chronic Comment: Per sleep study 12/25/2019, pt to wear BiPap (6) History of breast cancer Status: Chronic (7) Hx of lumpectomy Status: Chronic Comment: Right breast- 11/08/2015 History of Present Illness Date of Admission: 03/20/20 Chief Complaint: Chest pain and SOB The patient is a 60 year old F with past medical history of morbid obesity, obstructive sleep apnea on home BiPAP therapy, type 2 diabetes, breast cancer in remission, hypertension, hyperlipidemia, who presented to the emergency room with complaints of intermittent chest pain and shortness of breath that had been occurring over the last 2 months. The patient has had left-sided chest pressure along with associated shortness of breath and wheezing worse with exertion. She also has noticed that she has had increased lower extremity edema and was placed on Lasix as an outpatient. She was supposed to have a stress test with Dr. Arreguin as an outpatient however she felt that her symptoms have been worsening today so she came to the ER for evaluation. Patient is currently resting comfortably in bed no acute distress.. She has no history of coronary disease. She did have a stress test in January 2018 which was negative. She had pulmonary function testing with [facility] as an outpatient this year. After that she was referred to cardiology as an outpatient. 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) DM (diabetes mellitus), type 2, uncontrolled (Chronic) new diagnosis......pt states she was told she was borderline in the past Obstructive sleep apnea (Chronic) Per sleep study 12/25/2019, pt to wear BiPap History of septic shock (Chronic) Degeneration of intervertebral disc of lumbosacral region (Chronic) Radiculopathy of lumbosacral region (Chronic) Elevated C-reactive protein (Chronic) History of right breast cancer (Chronic) Low HDL (under 40) (Chronic) Morbid obesity with BMI of 45.0-49.9, adult (Chronic) Hepatic steatosis (Chronic) History of breast cancer (Chronic) Hx of lumpectomy (Chronic 11/05/15) Right breast- 11/08/2015 H/O section (Chronic) History of tubal ligation (Chronic 1998) Medical History: Medical History (Last Reviewed 01/22/20 @ 10:21 by Sharmaine Franks) Chest pain (Acute) R07.9 Shortness of breath (Acute) R06.02 Edema of both legs (Chronic) R60.0 Hypertension (Chronic) I10 Elevated sed rate (Chronic) R70.0 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) G62.0, T45.1X5A DM (diabetes mellitus), type 2, uncontrolled (Chronic) E11.65 new diagnosis......pt states she was told she was borderline in the past Obstructive sleep apnea (Chronic) G47.33 Per sleep study 12/25/2019, pt to wear BiPap History of septic shock (Chronic) Z86.19 Elevated C-reactive protein (Chronic) R79.82 Low HDL (under 40) (Chronic) E78.6 Morbid obesity with BMI of 45.0-49.9, adult (Chronic) E66.01, Z68.42 Pyelonephritis (Resolved) N12 Abnormal LFTs (Acute) R79.89 Hepatic steatosis (Chronic) K76.0 History of breast cancer (Chronic) Z85.3 Bulging lumbar disc M51.26 Degenerative disc disease Enthesopathy of right hip M76.891 Iliac crest spur, right hip M76.21 Recurrent UTI N39.0 Rheumatoid arthritis M06.9 Spinal stenosis, lumbar M48.061 Dehydration (Resolved) E86.0 Hypomagnesemia (Resolved) E83.42 Hypophosphatemia (Resolved) E83.39 Ketonuria (Resolved) R82.4 Nonsustained ventricular tachycardia (Resolved) I47.2 Proteinuria (Resolved) R80.9 Septic shock (Resolved) A41.9, R65.21 Thrombocytopenia (Resolved) D69.6 Allergies latex Allergy (Verified 03/20/20 09:55) Rash morphine Adverse Reaction (Verified 03/20/20 09:55) Other Home Medications: Ambulatory Orders Medication Instructions Recorded Atorvastatin Calcium [Lipitor] 40 mg PO BREAKFAST 03/18/17 Pioglitazone [Actos] 15 mg PO DAILY 02/13/18 Tamoxifen Citrate 20 mg PO DAILY 02/13/18 Gabapentin [Neurontin] 300 mg PO BID 12/07/18 albuterol sulfate 90 mcg/actuation 2 puff INHALATION Q4H PRN #1 device 11/22/19 aerosol inhaler carvedilol 3.125 mg tablet 3.125 mg PO BID 01/21/20 glipizide 10 mg tablet 10 mg PO BID 01/21/20 biotin 1,000 mcg chewable tablet 2,000 mcg PO DAILY tab 01/22/20 ergocalciferol (vitamin D2) 1,250 1,250 mcg PO QWEEK 01/22/20 mcg (50,000 unit) capsule Aspirin [Aspir 81] 81 mg PO DAILY 03/20/20 Furosemide 40 mg PO DAILY 03/20/20 Gabapentin 600 mg PO QHS 03/20/20 Losartan Potassium [Cozaar] 25 mg PO DAILY 03/20/20 metFORMIN (XR) [Glucophage Xr] 1,000 mg PO BIDCM 03/20/20 Surgical History: Surgical History (Last Reviewed 01/22/20 @ 10:21 by Sharmaine Franks) Hx of lumpectomy (Chronic) Onset Date: 11/05/15 Z98.890 Right breast- 11/08/2015 H/O section (Chronic) Z98.891 History of tubal ligation (Chronic) Onset Date: 1998 Z98.51 History of bowel resection Onset Date: 2012 Z90.49 Hx of breast biopsy (Resolved) Z98.890 Right breast- 09/2015 Partial small bowel obstruction (Resolved) K56.600 Surgical History: - - tubal ligation, 2 C sections, sbo hernia repair Psychiatric History: No pertinent psych hx [employer] History: - - She is in menopause and has had 2 caesarian sections in the past Smoking Status: Former smoker Tobacco Use: Non-smoker - *Family History Paternal Family History: Family History (Last Reviewed 03/20/20 @ 15:56 by JEOVANY Arenas) Mother Breast cancer Father Diabetes Sister Cancer History Items: - - Her father had diabetes mellitus and of complications secondary to diabetes mellitus. Maternal Family History: Family History (Last Reviewed 03/20/20 @ 15:56 by JEOVANY Arenas) Mother Breast cancer Father Diabetes Sister Cancer History Items: - - She tells me that her mother had stomach cancer. Offspring Family History: Family History (Last Reviewed 03/20/20 @ 15:56 by JEOVANY Arenas) Mother Breast cancer Father Diabetes Sister Cancer History Items: - - One of her children has diabetes mellitus and sleep apnea. Review of Systems Constitutional: Denies: Chills, Fever, Weight Change HEENT: Denies: Head Aches, Sinus Congestion, Sinus Drainage Cardiovascular: Reports: Chest Pain, Chest Pressure, Edema. Denies: Heaviness, Light Headedness, Palpitations, Syncope Respiratory: Reports: Shortness of Breath, Shortness of breath upon exertion, Wheezing. Denies: Cough, Shortness of breath at rest, Sputum production Gastrointestinal: Denies: Abdominal Pain, Diarrhea, Nausea, Vomiting Genitourinary: Denies: Dysuria Musculoskeletal: Denies: Joint Pain, Joint Tenderness Skin: Denies: Rash, Wounds Neurological: Denies: Numbness, Tingling, Focal weakness Psychiatric: Denies: Anxiety, Depression, Homicidal Ideations, Suicidal Ideations Hematologic/ Lymphatic: Denies: Easy Bruising, Easy Bleeding VTE Information - Inpt Only VTE Present on Admission: No VTE Mechan Device Prophylaxis: None VTE Pharm Prophylaxis ordered?: Yes - Physical Exam Vitals/I&O's: Vital Signs Temp Pulse Resp BP Pulse Ox 98.2 F 90 16 162/64 H 97 03/20/20 13:29 03/20/20 13:51 03/20/20 13:29 03/20/20 13:29 03/20/20 13:29 Oxygen Flow Rate (L/min) 2 Oxygen Delivery Method Nasal Cannula Weight: 287 lb 0.006 oz Body Mass Index (BMI) 54.2 Finger Stick Blood Glucose 190 General: Alert, Oriented x3, Cooperative HEENT: Atraumatic, PERRLA, EOMI, Normocephalic Neck: Supple, No JVD, Negative Carotid Bruits Lungs: Clear to auscultation, Normal air movement Cardiovascular: Regular rate, No murmurs Abdomen: Bowel Sounds Present, Soft, Non Tender, Obese Extremities: No edema, Capillary Refill Less than 3 Seconds Skin: No rashes, No breakdown Musculoskeletal: No Tenderness to Palpation of Joints or Extremities Neurological: Cranial nerves II-XII grossly intact Psych/Mental Status: Normal Affect, Appropriate, Alert and oriented to time, place, person, mood and affect Laboratory Results 03/20/20 10:40: WBC 5.8, RBC 3.44 L, Hgb 10.1 L, Hct 33.6 L, MCV 97.7, MCH 29.4, MCHC 30.1 L, RDW Std Deviation 50.6 H, RDW Coeff of Juan 14.2, Plt Count 164, MPV 10.8, Immature Gran % (Auto) 1.200 H, Neut % (Auto) 66.3, Lymph % (Auto) 20.9, [place] % (Auto) 8.5, Eos % (Auto) 2.4, Baso % (Auto) 0.7, Absolute Neuts (auto) 3.8, Absolute Lymphs (auto) 1.21, Nucleated RBC % 0 03/20/20 10:40: D-Dimer Quant (PE/DVT) 1.59 H* 03/20/20 10:40: Sodium 140, Potassium 3.8, Chloride 103, Carbon Dioxide 33.0 H, Anion Gap 4 L, BUN 11, Creatinine 0.63, Estim Creat Clear Calc 73.45, Est GFR (MDRD) Af Amer 125, Est GFR (MDRD) Non-Af 103, BUN/Creatinine Ratio 17.5, Glucose 203 H, Calcium 8.6, Troponin I < 0.015 03/20/20 13:50: Troponin I < 0.015 Current Medications [facility] Atorvastatin Calcium (Lipitor) 40 mg PO QHS COUNT INCLUDES THE [facility] Carvedilol (Coreg) 3.125 mg PO BID COUNT INCLUDES THE [facility] Dextrose (D50w Syringe) 0 gm IV X1 PRN; Protocol PRN Reason: Hypoglycemia Furosemide (Lasix) 20 mg IV Q8 COUNT INCLUDES THE [facility] Gabapentin (Neurontin) 600 mg PO QHS COUNT INCLUDES THE [facility] Gabapentin (Neurontin) 300 mg PO BID@0800,1200 COUNT INCLUDES THE [facility] Glipizide (Glucotrol) [facility] Glucagon () 1 mg IM .X1 PRN PRN Reason: Hypoglycemia Heparin Sodium (Porcine) (Heparin Na) 5,000 unit SC Q12 [facility] Insulin Human Lispro (Humalog Kwikpen (Bkc)) 0 unit SC ACHS [facility]; Protocol Losartan Potassium (Cozaar) 25 mg PO DAILY [facility] Metformin HCl (Glucophage Xr) 1,000 mg PO BIDCM [facility] Morphine Sulfate () 4 mg IV Q3H PRN PRN PRN Reason: Pain Score 6-10/10 Ondansetron HCl (Zofran) 4 mg IV Q8H PRN PRN PRN Reason: NAUSEA/VOMITING Pioglitazone HCl (Actos) 15 mg PO DAILY [facility] Potassium Chloride (K-Dur) 20 meq PO BIDCM COUNT INCLUDES THE [facility] Sodium Chloride () 10 - 40 ml IV UD PRN PRN Reason: SALINE FLUSH Tamoxifen Citrate (Nolvadex) 20 mg PO DAILY COUNT INCLUDES THE [facility] Assessment/Plan All Active Problems (Last Reviewed 01/22/20 @ 10:21 by Sharmaine Franks) Chest pain (Acute) Shortness of breath (Acute) Chest pressure (Acute) Breast cancer, right (Resolved) Nausea (Resolved) Wheezes (Acute) Pyelonephritis (Resolved) Abnormal LFTs (Acute) Dehydration (Resolved) Hx of breast biopsy (Resolved) Hypomagnesemia (Resolved) Hypophosphatemia (Resolved) Ketonuria (Resolved) Nonsustained ventricular tachycardia (Resolved) Partial small bowel obstruction (Resolved) Proteinuria (Resolved) Septic shock (Resolved) Thrombocytopenia (Resolved) 1. Chest pain, SOB, worse with exertion - had PFTs as o/p and referred to cardio, however symptoms continue to worsen. She also has LE edema and has been placed on lasix as an o/p. Trop neg. CXR neg. EKG sinus tachy. Cycle enzymes. Stress echo in the AM. Pt likely has underlying pulmonary htn or chf. will continue lasix for this. No formal dx yet. CTA chest neg. CO2 slightly elevated at 33.0 on BMP. 2. CHEPE, suspect OHS - continue bipap qhs 3. DMt2 with morbid obesity - dietary consult. continue home meds + SSI. 4. HTN - stable 5. HLD - statin 6. Hx breast cancer - on tamoxifen DVT ppx: heparin This patient was seen by Benjie Novak PA-C under the supervision of Dr. Rivera.
[2020-03-20] MEDS: Furosemide 20 MG/2 ML VIAL IV ×2 (15:53→21:20)
[2020-03-20 16:20] LABS: Bedside Glucose 99 mg/dL (70-110)
[2020-03-20] MEDS: glipiZIDE 10 MG Tablet PO (17:58)
[2020-03-20] MEDS: Carvedilol 3.125 MG TABLET PO (21:20)
[2020-03-20] MEDS: Atorvastatin Calcium 40 MG Tablet PO (21:20)
[2020-03-20] MEDS: 0.9% Saline Lock 10 ML Syringe IV (21:21)
[2020-03-20] MEDS: Insulin Lispro 100 UNIT/ML INSULN.PEN SC (21:30)
[2020-03-20 21:35] LABS: Bedside Glucose 163 mg/dL (70-110)
[2020-03-20] MEDS: Heparin Injection (Vial) 5,000 UNIT/ML VIAL 5000 UNIT SC (21:35)
[2020-03-21] VITALS (12 sets, daily range): BP systolic 118–154; BP diastolic 51–85; PULSE 81–99; RESP 12–18; TEMP 36.4–36.9; O2SAT 90–100
--- NOTE | 2020-03-21 05:00 | EKG12_ITS ---
Test Reason : AM Blood Pressure : / mmHG Vent. Rate : 083 BPM Atrial Rate : 083 BPM P-R Int : 172 ms QRS Dur : 098 ms QT Int : 396 ms P-R-T Axes : 061 039 016 degrees QTc Int : 465 ms Normal sinus rhythm Normal ECG When compared with ECG of 20-MAR-2020 13:11, MANUAL COMPARISON REQUIRED, DATA IS UNCONFIRMED Confirmed by DANIEL ROMANO, GERMANIA ([id number]), map editor NELLY PEÑALOZA ([id number]) on 03/25/2020 1:49:25 PM Referred By: NICK Confirmed By:GERMANIA SANCHEZ MD
--- NOTE | 2020-03-21 05:55 | ECHOCS_ITS ---
Reason For Study: Chest pain Procedure This was a 2D Doppler, Color Flow transthoracic echocardiogram. The study was technically difficult. Exam performed in department. Left Ventricle Normal size and thickness. The estimated ejection fraction is 65 %. Stage 1 diastolic dysfunction. No regional wall motion abnormalities noted. Right Ventricle Normal size and thickness. Normal systolic function. Atria Normal left atrium. Normal right atrium. Normal atrial septum. Mitral Valve The mitral valve is structurally normal. No prolapse or stenosis seen. Tricuspid Valve Normal tricuspid valve. Unable to estimate RV systolic pressure due to insufficient tricuspid regurgitant envelope. Aortic Valve Trisinus/trileaflet aortic valve. Mild aortic stenosis. Peak aortic valve gradient 31 mmHg. Mean aortic valve gradient 16 mmHg. Calculated aortic valve area (continuity equation) is 1.4 cm2. Pulmonic Valve The pulmonic valve is not well visualized. Great Vessels Normal aortic root. Normal arch. Normal inferior vena cava. Inferior vena cava collapse with sniff. Pericardium/Pleural No pericardial effusion. Medication Diluted definity 1ml given slow IV push to enhance endocardial definition. MMode/2D Measurements & Calculations LVIDd: 5.0 cm IVSd: 1.0 cm LVOT diam: 2.0 cm LVIDs: 2.4 cm LVPWd: 1.00 cm FS: 51.8 % LVOT area: 3.2 cm2 Ao root diam: 2.8 cm LAV(MOD-bp): 63.4 ml LA A4 area: 22.3 cm2 LAV(MOD-bp) Indexed: 28.8 ml/m2 LAV(MOD-sp2): 61.2 ml LAV(MOD-sp4): 63.2 ml LA dimension(2D): 3.3 cm Doppler Measurements & Calculations MV E max hollis: 103.1 cm/sec Lat Peak E' Hollis: 8.7 cm/sec Med Peak E' Hollis: 7.3 cm/sec MV A max hollis: 112.8 cm/sec E/E' lat: 11.8 E/E' med: 14.1 MV E/A: 0.91 Ao V2 max: 277.9 cm/sec LV V1 max: 122.2 cm/sec SV(LVOT): 82.6 ml Ao max P.0 mmHg LV V1 max P.0 mmHg Ao V2 mean: 188.7 cm/sec LV V1 mean P.1 mmHg Ao mean P.2 mmHg LV V1 mean: 83.1 cm/sec Ao V2 VTI: 59.4 cm LV V1 VTI: 25.8 cm LEONARDO(I,D): 1.4 cm2 LEONARDO(V,D): 1.4 cm2 PA V2 max: 146.4 cm/sec Interpretation Summary The estimated ejection fraction is 65 %. Stage 1 diastolic dysfunction. Mild aortic stenosis. Compared to echo report dated 02/14/2018 LV function has remained the same. No noted aortic stenosis at that time. Aortic valve gradient may be affected by anemia. Recommend clinical correlation. Aortic valve appears to open normally, although imaging is technically difficult. The study was technically difficult. Contrast injection was performed. Ordering Physician: Papo Rivera Referring Physician: Cara Brambila Performed By: Gabrielle Montoya RDCS
[2020-03-21] MEDS: Losartan Potassium 25 MG Tablet PO (05:57)
[2020-03-21] MEDS: Aspirin E.C. 81 MG Tablet PO (05:57)
[2020-03-21 07:36] LABS: Bedside Glucose 145 mg/dL (70-110)
--- NOTE | 2020-03-21 11:32 | STRESSREP_ITS ---
Stress Test Report Pharmacologic myocardial perfusion stress test. 60-year-old lady with a history of chest pain. Stress protocol: Resting EKG demonstrates normal sinus rhythm with a rate of 89 bpm normal intervals are noted resting blood pressure 130/72 mmHg. 0.4 mg of regadenoson was infused per usual protocol followed Intravenous saline flush injection continuous EKG monitoring was performed. The patient maintained sinus rhythm throughout the recording. The maximum heart rate attained was 106 bpm which was 65% of maximum predicted heart rate the maximum workload was 1 metabolic equivalent. At rest there were no ST or T wave changes noted suggest abnormal flow reserve a peak infusion nonspecific ST-T wave changes were noted with no meet the criteria for ischemia. The final blood pressure was 138/70 mmHg. Myocardial perfusion protocol. 15.0 mCi of technetium 99m sestamibi was injected at rest. 0.4 mg of regadenoson was infused per usual protocol. At peak infusion 45.0 mCi of technetium 99m sestamibi was injected stress images were obtained stress and rest images were reconstructed and compared in the short axis vertical long hori zontal long axis. Gated images were also obtained Perfusion SPECT analysis: Review of the stress images demonstrate normal uptake of tracer noted in all areas of the myocardium the resting images similarly demonstrate normal uptake of tracer noted in all areas of the myocardium. No reversibility is noted to suggest ischemia. Gated SPECT analysis: The gated ejection fraction is 70%. Conclusion: Normal pharmacologic myocardial perfusion stress test. Preserved ejection fraction.
[2020-03-21] MEDS: glipiZIDE 10 MG Tablet PO ×2 (12:14→16:17)
[2020-03-21] MEDS: Carvedilol 3.125 MG TABLET PO (12:16)
[2020-03-21] MEDS: Pioglitazone Hydrochloride 15 MG Tablet PO (12:16)
[2020-03-21] MEDS: Heparin Injection (Vial) 5,000 UNIT/ML VIAL 5000 UNIT SC (12:16)
[2020-03-21] MEDS: Gabapentin 300 MG Capsule PO (12:16)
[2020-03-21] MEDS: Tamoxifen 10 MG Tablet 20 MG PO (12:17)
[2020-03-21] MEDS: Insulin Lispro 100 UNIT/ML INSULN.PEN SC ×2 (12:18→16:17)
--- NOTE | 2020-03-21 12:24 | DCINST_ITS ---
- Discharge Diagnoses Current Active Problems: Current Active and Chronic Problems (Last Reviewed 01/22/20 @ 10:21 by Sharmaine Franks) Morbid obesity with BMI of 50.0-59.9, adult (Chronic) You will use the following diet at home:: Calorie/Carbohydrate Controlled (specify 1200, 1400, etc) - 1800 river / day, Cardiac - 2-3 gram sodium daily. Fluid restriction 1800 cc per day Your food should be the consistency of: Regular Your liquids should be the consistency of: Regular/Thin Discharge Activity: Return to Normal Activity Additional Instructions: Check weight daily. If 2lb weight gain in 24 hours or 5 lbs in 1 week, call your doctor for instructions regarding lasix. You will need a BMP (Lab) in 1 week, talk to your doctor to have this arranged. You should obtain and wear knee high compression socks during the day to help with swelling in the legs. You should also elevate your legs when sitting. You need to ask your family medicine doctor about switching the medication Actos to an alternative for diabetes. Allergies/Adverse Reactions: Allergies latex Allergy (Verified 03/20/20 09:55) Rash morphine Adverse Reaction (Verified 03/20/20 09:55) Other Medications to take at Discharge Atorvastatin Calcium [Lipitor] 40 mg PO BREAKFAST 03/18/17 Pioglitazone [Actos] 15 mg PO DAILY 02/13/18 Tamoxifen Citrate 20 mg PO DAILY 02/13/18 Gabapentin [Neurontin] 300 mg PO BID 12/07/18 albuterol sulfate 90 mcg/actuation aerosol inhaler 2 puff INHALATION Q4H PRN #1 device 11/22/19 carvedilol 3.125 mg tablet 3.125 mg PO BID 01/21/20 glipizide 10 mg tablet 10 mg PO BID 01/21/20 biotin 1,000 mcg chewable tablet 2,000 mcg PO DAILY tab 01/22/20 ergocalciferol (vitamin D2) 1,250 mcg (50,000 unit) capsule 1,250 mcg PO QWEEK 01/22/20 Aspirin [Aspir 81] 81 mg PO DAILY 03/20/20 Gabapentin 600 mg PO QHS 03/20/20 Losartan Potassium [Cozaar] 25 mg PO DAILY 03/20/20 metFORMIN (XR) [Glucophage Xr] 1,000 mg PO BIDCM 03/20/20 Furosemide 40 mg PO BID #60 tab 03/21/20 Potassium Chloride [K-Dur] 20 meq PO BID #60 tab 03/21/20 The following prescriptions were given: Furosemide 40 mg PO BID #60 tab Transmission Status: Pending to [id number] Potassium Chloride [K-Dur] 20 meq PO BID #60 tab Transmission Status: Pending to [id number] Primary Care Physician: Cara Brambila DO [Primary Care Provider] - Please follow up with your Primary Care Physician in: 1 week Test Results: Test results from this visit will be discussed in further detail at your follow- up appointment, if applicable. Please Follow Up With: Crow Arreguin MD When: as directed Please Follow Up With: Shayna Douglas NP-C When: 3-4 weeks Proposed Discharge Date: 03/21/20
--- NOTE | 2020-03-21 12:47 | PHA.DC.MC ---
Pharmacy Service has performed discharge medication reconciliation and counseling for this patient. 1. FUROSEMIDE 40MG PO BID 2. POTASSIUM CHLORIDE 20MEQ PO BID The patient's discharge medication list was reviewed for discrepancies and discrepancies were resolved. Advised patient to speak with PCP regarding Actos use with CHF per Benjie's note. Home Medications Atorvastatin Calcium [Lipitor] 40 mg PO BREAKFAST 03/18/17 Pioglitazone [Actos] 15 mg PO DAILY 02/13/18 Tamoxifen Citrate 20 mg PO DAILY 02/13/18 Gabapentin [Neurontin] 300 mg PO BID 12/07/18 albuterol sulfate 90 mcg/actuation aerosol inhaler 2 puff INHALATION Q4H PRN #1 device 11/22/19 carvedilol 3.125 mg tablet 3.125 mg PO BID 01/21/20 glipizide 10 mg tablet 10 mg PO BID 01/21/20 biotin 1,000 mcg chewable tablet 2,000 mcg PO DAILY tab 01/22/20 ergocalciferol (vitamin D2) 1,250 mcg (50,000 unit) capsule 1,250 mcg PO QWEEK 01/22/20 Aspirin [Aspir 81] 81 mg PO DAILY 03/20/20 Gabapentin 600 mg PO QHS 03/20/20 Losartan Potassium [Cozaar] 25 mg PO DAILY 03/20/20 metFORMIN (XR) [Glucophage Xr] 1,000 mg PO BIDCM 03/20/20 Furosemide 40 mg PO BID #60 tab 03/21/20 Potassium Chloride [K-Dur] 20 meq PO BID #60 tab 03/21/20 The patient was counseled on the following discharge medications and changes in medications for homegoing were reviewed. The Reason for Use, instructions for use, and potential side effects were reviewed for all new medications. The patient's questions regarding all of their medications were answered. The patient was able to verbally demonstrate an understanding of their discharge medications.
[2020-03-21 12:56] LABS: Bedside Glucose 192 mg/dL (70-110)
--- NOTE | 2020-03-21 13:58 | PCM.DC.SUM ---
Discharge Date and Diagnosis - Problem List Patient Problems: Active and Suspected Problems (Last Reviewed 01/22/20 @ 10:21 by Sharmaine Franks) Diastolic CHF (Acute) Date of Admission: 03/20/20 Date of Discharge: 03/21/20 - Primary Discharge Diagnosis Acute Problems: Active Problems (Last Reviewed 01/22/20 @ 10:21 by Sharmaine Franks) Diastolic CHF (Acute) Mild aortic stenosis Morbid obesity CHEPE HTN HLD DMt2 Hx breast cancer in remission - Secondary Discharge Diagnosis Chronic Problems: Chronic Problems (Last Reviewed 01/22/20 @ 10:21 by Sharmaine Franks) Morbid obesity with BMI of 50.0-59.9, adult (Chronic) Edema of both legs (Chronic) Hypertension (Chronic) Elevated sed rate (Chronic) 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) DM (diabetes mellitus), type 2, uncontrolled (Chronic) new diagnosis......pt states she was told she was borderline in the past Obstructive sleep apnea (Chronic) Per sleep study 12/25/2019, pt to wear BiPap History of septic shock (Chronic) Degeneration of intervertebral disc of lumbosacral region (Chronic) Radiculopathy of lumbosacral region (Chronic) Elevated C-reactive protein (Chronic) History of right breast cancer (Chronic) Low HDL (under 40) (Chronic) Morbid obesity with BMI of 45.0-49.9, adult (Chronic) Hepatic steatosis (Chronic) History of breast cancer (Chronic) Hx of lumpectomy (Chronic 11/05/15) Right breast- 11/08/2015 H/O section (Chronic) History of tubal ligation (Chronic 1998) Hospital Course and Treatment Imaging Results: DIAGNOSTICS: 03/21/20 05:55 Echo Complete W/ Contrast [ECHO] Routine Nuclear Stress Test - Chemical [NM] AM (NON MEDS) Perfusion SPECT analysis: Review of the stress images demonstrate normal uptake of tracer noted in all areas of the myocardium the resting images similarly demonstrate normal uptake of tracer noted in all areas of the myocardium. No reversibility is noted to suggest ischemia. Gated SPECT analysis: The gated ejection fraction is 70%. Conclusion: Normal pharmacologic myocardial perfusion stress test. Preserved ejection fraction. RAD/Chest 1 View (Portable) IMPRESSION: Normal x-ray examination of the chest. CT/CTA Chest W/WO Contrast IMPRESSION: No evidence of pulmonary embolism. Postoperative changes seen in the right breast. 2D TTE: Interpretation Summary The estimated ejection fraction is 65 %. Stage 1 diastolic dysfunction. Mild aortic stenosis. Compared to echo report dated 02/14/2018 LV function has remained the same. No noted aortic stenosis at that time. Aortic valve gradient may be affected by anemia. Recommend clinical correlation. Aortic valve appears to open normally, although imaging is technically difficult. The study was technically difficult. Contrast injection was performed. Operations: None, - - exploratory laparotomy with release of incarcerated ventral incisional hernia, lysis of adhesions, release small bowel obstruction with release of internal hernia Procedures: 2-D Echocardiogram, Stress test Summary of Care Provided: Hospital Course: The patient is a 60 year old F with pmhx as above who presented to the ER with c/o SOB and chest pain for two months. She had outpatient PFTs and had no issues, and was referred to Dr. Arreguin who planned an outpatient stress echo. She became worse and came to the ER. She also had weight gain and LE edema. Troponin, CXR, CTA chest, and EKG were negative. She was admitted for CP work up. She was placed on IV lasix. She had recently started 40 lasix qd with little improvement. She had troponin negx3. No events on tele. Stress test was negative for ischemia. Echocardiogram showed EF 65%, mild , diastolic dysfunction, technically difficulty study. She was felt to have diastolic CHF complicated by . Unfortunately the echo did not provide information regarding any underlying pulmonary htn. She was placed on 40 BID lasix for DC as she had little improvement on qd dosing. She was advised on monitoring daily weights, fluid and sodium restriction. I advised she follow up with cardiology Dr. Arreguin as directed, pulmonology in 3-4 weeks, and her PCP in 1 week. She will need a BMP in 1 week. She was discharged home in stable condition. This patient was seen by Benjie Novak PA-C under the supervision of Dr. Mei.[] Patient Problems: Active and Suspected Problems (Last Reviewed 01/22/20 @ 10:21 by Sharmaine Franks) Diastolic CHF (Acute) - Physical Exam Vitals/I&O's: Vital Signs Temp Pulse Resp BP Pulse Ox 98.1 F 81 16 139/55 H 100 03/21/20 08:10 03/21/20 08:10 03/21/20 08:10 03/21/20 08:10 03/21/20 08:10 Oxygen Flow Rate (L/min) 2 Oxygen Delivery Method Nasal Cannula Weight: 281 lb 8.485 oz Body Mass Index (BMI) 54.2 Finger Stick Blood Glucose 190 Intake and Output for Last 24 Hours 03/19/20 03/20/20 03/21/20 23:59 23:59 23:59 Intake Total 900 / 900 50 / 50 Output Total 3650 / 3650 850 / 850 Balance -2750 / -2750 -800 / -800 General: Alert, Oriented x3, Cooperative HEENT: Atraumatic, PERRLA, EOMI, Normocephalic Neck: Supple, No JVD, Negative Carotid Bruits Lungs: Clear to auscultation, Normal air movement Cardiovascular: Regular rate, Murmur - 3/6 systolic murmur LSB Abdomen: Bowel Sounds Present, Soft, Non Tender, Obese Extremities: No edema, Capillary Refill Less than 3 Seconds Skin: No rashes, No breakdown Musculoskeletal: No Tenderness to Palpation of Joints or Extremities Neurological: Cranial nerves II-XII grossly intact Psych/Mental Status: Normal Affect, Appropriate Laboratory Results 03/20/20 13:50: Troponin I < 0.015 03/20/20 15:52: POC Glucose 99 03/20/20 16:47: Troponin I < 0.015 03/20/20 21:28: POC Glucose 163 H 03/21/20 07:10: POC Glucose 145 H 03/21/20 11:58: POC Glucose 192 H Current Medications Aspirin (Ecotrin) 81 mg PO DAILYCM [facility] Last Admin: 03/21/20 05:57 Dose: 81 mg Documented by: Atorvastatin Calcium (Lipitor) 40 mg PO QHS [facility] Last Admin: 03/20/20 21:20 Dose: 40 mg Documented by: Carvedilol (Coreg) 3.125 mg PO BID [facility] Last Admin: 03/21/20 12:16 Dose: 3.125 mg Documented by: Dextrose (D50w Syringe) 0 gm IV X1 PRN; Protocol PRN Reason: Hypoglycemia Furosemide (Lasix) 20 mg IV Q8 [facility] Last Admin: 03/21/20 05:54 Dose: Not Given Documented by: Gabapentin (Neurontin) 600 mg PO QHS [facility] Last Admin: 03/20/20 21:30 Dose: Not Given Documented by: Gabapentin (Neurontin) 300 mg PO BID@0800,1200 [facility] Last Admin: 03/21/20 12:16 Dose: 300 mg Documented by: [facility]: 03/21/20 12:14 Dose: 10 mg Documented by: Glucagon () 1 mg IM .X1 PRN PRN Reason: Hypoglycemia Heparin Sodium (Porcine) (Heparin Na) 5,000 unit SC Q12 [facility] Last Admin: 03/21/20 12:16 Dose: 5,000 unit Documented by: Insulin Human Lispro (Humalog Kwikpen (Bkc)) 0 unit SC [facility]; Protocol Last Admin: 03/21/20 12:18 Dose: 2 units Documented by: Losartan Potassium (Cozaar) 25 mg PO DAILY [facility] Last Admin: 03/21/20 05:57 Dose: 25 mg Documented by: Metformin HCl ([facility]r) [facility] Last Admin: 03/20/20 18:00 Dose: Not Given Documented by: Morphine Sulfate () 4 mg IV Q3H PRN PRN PRN Reason: Pain Score 6-10/10 Ondansetron HCl (Zofran) 4 mg IV Q8H PRN PRN PRN Reason: NAUSEA/VOMITING Pioglitazone HCl (Actos) 15 mg PO DAILY [facility] Last Admin: 03/21/20 12:16 Dose: 15 mg Documented by: Potassium [facility] ([facility]-Dur) [facility] Admin: 03/21/20 12:14 Dose: 20 meq Documented by: Sodium Chloride () 10 - 40 ml IV UD PRN PRN Reason: SALINE FLUSH Last Admin: 03/20/20 21:21 Dose: 10 ml Documented by: Tamoxifen Citrate (Nolvadex) 20 mg PO DAILY [facility] Last Admin: 03/21/20 12:17 Dose: 20 mg Documented by: Discharge Diet: Low fat/ Low Cholesterol, 2000 mg Sodium Diet, - - 1800 cc fluid restriction Discharge Activity: Return to Normal Activity Home Medications: Medications to take at Discharge Atorvastatin Calcium [Lipitor] 40 mg PO BREAKFAST 03/18/17 Pioglitazone [Actos] 15 mg PO DAILY 02/13/18 Tamoxifen Citrate 20 mg PO DAILY 02/13/18 Gabapentin [Neurontin] 300 mg PO BID 12/07/18 albuterol sulfate 90 mcg/actuation aerosol inhaler 2 puff INHALATION Q4H PRN #1 device 11/22/19 carvedilol 3.125 mg tablet 3.125 mg PO BID 01/21/20 glipizide 10 mg tablet 10 mg PO BID 01/21/20 biotin 1,000 mcg chewable tablet 2,000 mcg PO DAILY tab 01/22/20 ergocalciferol (vitamin D2) 1,250 mcg (50,000 unit) capsule 1,250 mcg PO QWEEK 01/22/20 Aspirin [Aspir 81] 81 mg PO DAILY 03/20/20 Gabapentin 600 mg PO QHS 03/20/20 Losartan Potassium [Cozaar] 25 mg PO DAILY 03/20/20 metFORMIN (XR) [Glucophage Xr] 1,000 mg PO BIDCM 03/20/20 Furosemide 40 mg PO BID #60 tab 03/21/20 Potassium Chloride [K-Dur] 20 meq PO BID #60 tab 03/21/20 Following Prescrptions Were Given to Patient: Furosemide 40 mg PO BID #60 tab Transmission Status: Received by [id number] Potassium Chloride [K-Dur] 20 meq PO BID #60 tab Transmission Status: Received by [id number] Primary Care Physician: Cara Brambila DO [Primary Care Provider] - Please follow up with your Primary Care Physician in: 1 week Please Follow Up With: Crow Arreguin MD When: as directed Please Follow Up With: Shayna Douglas NP-C When: 3-4 weeks Disposition: Home Minutes spent on discharge:: 35 Patient Condition:: Stable Medical Necessity - Tobacco Use Smoking Status: Former smoker Tobacco Use: Non-smoker Meaningful Use Info Meaningful Use Diagnoses (Choose all that apply): CHF - CHF ROZ/ARB ordered at discharge?: Yes Documented LVEF (%): 65
--- NOTE | 2020-03-21 14:52 | CHAPLAIN ---
Type of Pastoral Visit _x__ Initial Visit ___ Follow-up Visit ___ On-call Visit ___ General Patient Visit ___ Spiritual Assessment ___ Family Conference ___ Bereavement ___ Rapid Response ___ Code Blue ___ Other (describe below) Pastoral Care Referral From _x__ Patient ___ Family ___ Nurse ___ Physician ___ People Greeter ___ [employer] Foods Worker ___ Other (describe below) Sacrament/Intervention _x__ Active listening ___ Anointing ___ Restorationist ___ Bereavement ___ Communion _x__ Britni exploration ___ _x__ Life review _x__ Prayer ___ Reconciliation ___ Sacrament of Sick _x__ Supportive presence ___ Wedding ___ Other (describe below) Pastoral Comments
[2020-03-21] MEDS: 0.9% Saline Lock 10 ML Syringe IV (15:55)
[2020-03-21] MEDS: Furosemide 20 MG/2 ML VIAL IV (15:55)
[2020-03-21 16:26] LABS: Bedside Glucose 197 mg/dL (70-110)
--- NOTE | 2020-03-21 18:20 | NURSING ---
Attempted to provide discharge teaching to patient's . No answer. Left message to return call should he have questions. Discharge papers were sent home with patient. PCU phone number provided.
== END 2020-03-21 12:27 | disposition home or self-care (01) ==
LOC: ED 11:08 → PCU 15:00
PROVIDERS: Admitting Provider Internal Medicine; Emergency Provider Emergency Medicine; PCP Family Medicine; Visit Provider Internal Medicine
DX: I11.0 Hypertensive heart disease with heart failure (principal); I50.31 Acute diastolic (congestive) heart failure; E66.01 Morbid (severe) obesity due to excess calories; Z68.43 Body mass index [BMI] 50.0-59.9, adult; G47.33 Obstructive sleep apnea (adult) (pediatric); E11.9 Type 2 diabetes mellitus without complications; E78.5 Hyperlipidemia, unspecified; G62.0 Drug-induced polyneuropathy; T45.1X5A Adverse effect of antineoplastic and immunosuppressive drugs, initial encounter; M51.17 Intervertebral disc disorders with radiculopathy, lumbosacral region; M06.9 Rheumatoid arthritis, unspecified; K76.0 Fatty (change of) liver, not elsewhere classified; Z85.3 Personal history of malignant neoplasm of breast; Z79.899 Other long term (current) drug therapy; Z79.84 Long term (current) use of oral hypoglycemic drugs; Z79.82 Long term (current) use of aspirin; Z87.891 Personal history of nicotine dependence; R94.31 Abnormal electrocardiogram [ECG] [EKG]; R00.0 Tachycardia, unspecified
CPT/HCPCS: 36415; 71045; 71275; 78452; 80048; 82962; 84484; 85025; 85379; 93005; 93017; 93306; 94002; 96372; 96374; 96376; 99218; 99285; A9500; Q9957; Q9967; A4216; C8929; G0378; J1940; J2785

== ENCOUNTER → 2020-04-09 06:12 | Outpatient (CLI) | payer OTHER, SELFPAY ==
[2020-04-01 14:49] VITALS: BMI 53.3
--- NOTE | 2020-04-10 08:15 | BRONCHALL ---
Bronchoprovocation Challenge - Bronchoprovocation Challenge Bronchoprovocation Challenge: INTRODUCTION: The patient is a 60-year-old female that presents for a bronchoprovocation challenge secondary to a diagnosis of dyspnea. The respiratory therapist reported good patient effort and reproducible results. Contraindications for bronchoprovocation challenge were reviewed with the patient. INTERPRETATION: Initial spirometry did not show any large airways obstructive ventilatory defect. The patient has known restrictive ventilatory mechanics. The patient was given progressively increasing doses of methacholine in a standardized fashion. At level 3 the patient experienced a 22% drop in FEV1, indicating a positive test. The patient's PD 20 FEV1 was noted to be 0.055. The patient did have post challenge bronchodilator recovery. IMPRESSION: Positive methacholine challenge.
== END ==
PROVIDERS: PCP Family Medicine; Referring Provider Internal Medicine Critical Care Medicine; Visit Provider Internal Medicine Critical Care Medicine
DX: R06.02 Shortness of breath (principal)
CPT/HCPCS: 94070; 95070; J3490; J7674

== ENCOUNTER → 2020-04-15 08:52 | Outpatient (CLI) | payer OTHER, SELFPAY ==
[2019-12-19 13:23] VITALS: BMI 53.4
[2020-04-01 14:49] VITALS: BMI 53.3
--- NOTE | 2020-04-15 08:53 | BI_ITS ---
MAMMOGRAPHY - BILATERAL DIAGNOSTIC REASON FOR EXAM: Female, 60 years old. BILAT DX FOR RT BREAST SWELLING AND AXILLARY SWELLING - PERSONAL HX @ AGE 56 WITH RT LUMPECTOMY WITH RADIATION - FAM HX OF MOTHER @ AGE 72 - CURRENT INHIBITORS SINCE 2016 PERTINENT HISTORY: Personal history, previous right lobectomy TECHNIQUE: Digital examination. Mediolateral oblique (MLO) and craniocaudad (CC) views of both breasts were obtained along with 3D tomosynthesis. CAD: CAD was performed on this study. COMPARISON: 04/24/2019 FINDINGS: Breast Composition: The breasts are heterogeneously dense, which may obscure small masses. Postoperative scarring in the right breast. There is skin thickening and coarse calcifications. Patient reports new right axillary and right breast swelling so further evaluation of this area with ultrasound is recommended. Left breast shows stable punctate calcifications and no new suspicious findings. BI/DIAG MAMM W/CAD, BILAT IMPRESSION: Further ultrasonographic evaluation recommended, as described above. Recall Side: Right Breast ASSESSMENT CATEGORY: BIRADS Category 0: Incomplete. Need additional imaging evaluation. A letter regarding these results will be sent to the patient by the facility within 30 days. FOLLOW UP RECOMMENDATION: Ultrasound Recommended. (I) Approximately 10% of breast cancers are not detected by mammography. A normal mammogram should not delay biopsy of a clinically suspicious abnormality. Electronically Signed: Filiberto Lynn MD at 11:54 EDT , Service support ,
--- NOTE | 2020-04-15 08:53 | US_ITS ---
STUDY: ULTRASOUND BREAST - RIGHT REASON FOR EXAM: Female, 60 years old. Pain, edema, erythema TECHNIQUE: Axial and longitudinal images of the RIGHT breast were performed with a high resolution ultrasound transducer. # OF IMAGES: 92 COMPARISON: None. FINDINGS: RIGHT Breast: Sonographic evaluation of the right breast shows stable scarring in the region of the lumpectomy site with some postoperative calcifications. There are partially calcified shadowing nodules 9:00 measuring less than 1 cm. There is extensive skin thickening and soft tissue edema but no suspicious shadowing solid mass or shadowing clustered calcifications. US/Breast Complete Unilateral IMPRESSION: Shows dense fibroglandular tissue with subcutaneous edema but no suspicious shadowing hypoechoic mass or calcifications. ASSESSMENT CATEGORY: BIRADS Category 2: Benign. A letter regarding these results will be sent to the patient by the facility within 30 days. Electronically Signed: Filiberto Lynn MD at 12:36 EDT , Service support ,
== END ==
PROVIDERS: PCP Family Medicine; Referring Provider Nurse Practitioner Family; Visit Provider Nurse Practitioner Family
DX: L53.9 Erythematous condition, unspecified (principal)
CPT/HCPCS: 76641; 77062; 77066; G0279

== ENCOUNTER → 2020-04-15 12:07 | Outpatient (CLI) | payer OTHER, SELFPAY ==
[2020-03-20 13:16] VITALS: BMI 54.2
[2020-04-01 14:49] VITALS: BMI 53.3
[2020-04-15 15:14] LABS: International Normalized Ratio 1.1; Prothrombin Time (Protime)PT. 13.3 SECONDS (11.7-14.9)
[2020-04-15 15:46] LABS: Internal QC Validated? YES +Cl - CLEAR BKGD; Pregnancy, Serum, hCG Quali. NEGATIVE Negative
== END ==
PROVIDERS: Internal Medicine Cardiovascular Disease; Nurse Practitioner Family; PCP Family Medicine; Referring Provider Anesthesiology Pain Medicine; Visit Provider Anesthesiology Pain Medicine
DX: I50.30 Unspecified diastolic (congestive) heart failure (principal); R07.9 Chest pain, unspecified; R06.02 Shortness of breath; Z85.3 Personal history of malignant neoplasm of breast; D64.9 Anemia, unspecified; R06.00 Dyspnea, unspecified
CPT/HCPCS: 36415; 84703; 85610; 87635; U0003

== ENCOUNTER 2020-04-16 08:38 | Day surgery (SDC) | payer OTHER, SELFPAY ==
[2020-04-15 12:59] VITALS: BMI 52.1
[2020-04-15 14:34] VITALS: BMI 52.5
--- NOTE | 2020-04-16 11:42 | HP.PCM_ITS ---
Problem List (1) Chest pain Status: Acute Qualifiers: (2) Chest pressure Status: Acute (3) Diastolic CHF Status: Acute (4) Shortness of breath Status: Acute (5) Edema of both legs Status: Chronic History and Physical Date of Admission: 04/16/20 [facility] [address] [place] [address] OFFICE VISIT Date of Service: 04/15/20 MR#: [id number] Acct: [id number] Name: FLORENTINO GARG Rep #: [id number] : 1960 Provider: Dr. Colby Arreguin MD Age/Sex: 60/F Location: [facility] [place] Status: Signed HPI HPI History of Present Illness Details: Details: Mrs. Garg is a very pleasant 60-year-old severely obese female with a history of hypertension, former [id number] smoker quit around 25 years ago, no positive family history of premature coronary disease, diabetes type 2, obstructive sleep apnea, low HDL, history of breast cancer status post right-sided lumpectomy in October 2015, diagnosed with stage IIb invasive ductal carcinoma, followed by chemo with tamoxifen and radiation,, and history of tubal ligation in 1998. The patient was initially referred by Dr. Brambila for chest pain and has developed shortness of breath since August 2019. Patient complains of a persistent cough and was on lisinopril at the time. She complained of shortness of breath and dyspnea on exertion with walking as well as heaviness in her chest which waxes and wanes. She had been on lisinopril for the better part of 3 years, but has recently described a dry hacking cough. She also had associated wheezing. Unfortunately her insurance would not pay for her CPAP and she has not been on this for the better part of year and a half. Patient did undergo BiPAP adjustments on 03/20/2020. She underwent PFTs on 12/04/2019 which showed mild restrictive ventilatory impairment with disproportionate reduction in diffusing capacity. In addition she underwent a non-walking nuclear stress test on 02/14/2018 which was essentially negative with an EF of 73. 2D echo with Doppler dated 02/14/2018 showed an EF of 64%, trivial MR, trivial TR, RVSP of 26 mmHg. Patient was doing well up until around 03/20/2020 where she presented with worsening shortness of breath and chest pain. She was admitted for diastolic heart failure and prescribed IV Lasix which eventually was switched to p.o. Lasix. Cardiology was not consulted. As part of her cardiac work-up she underwent the following: She underwent a repeat echocardiogram on 03/21/2020 with the following results: The estimated ejection fraction is 65 %. Stage 1 diastolic dysfunction. Mild aortic stenosis. Compared to echo report dated 02/14/2018 LV function has remained the same. No noted aortic stenosis at that time. Aortic valve gradient may be affected by anemia. Recommend clinical correlation. Aortic valve appears to open normally, although imaging is technically difficult. The study was technically difficult. Contrast injection was performed. In addition she underwent a non-walking nuclear stress test on 03/21/2020 with the following results: Normal pharmacologic myocardial perfusion stress test. Preserved ejection fraction. She was subsequently discharged and is now here in follow-up. She is compliant with her baby aspirin, Coreg, Lasix at 40 mg p.o. twice daily as well as losartan. Patient's main complaint continues to be shortness of breath and dyspnea on exertion. She was referred to pulmonary and was seen by them on 04/01/2020. She was trialed on bronchodilators with minimal improvement. She underwent pulmonary function tests on 12/05/2019 with the following results: Mild restrictive ventilatory impairment with disproportionate reduction in diffusing capacity. In addition she underwent a chest CTA on 03/20/2020 which was negative for pulmonary embolism, and found no overt pulmonary abnormalities. She has never undergone a catheterization. On further history she states that ever since she started Coreg around the winter 2018, she has had progressively worsening dyspnea on exertion and shortness of breath. In addition she is undergone 8 treatments of x-ray therapy for her right-sided breast cancer in 2016 as well as around 8 episodes of x-ray therapy to her right chest wall. Her shortness of breath has preceded her Coreg, but definitely worsened with Coreg. In addition she complains of right upper chest wall pain, and she just underwent a repeat mammogram today as she has tenderness and hot area over her right upper chest, and they are concerned that her breast cancer may have returned. As long she takes her Lasix, her lower extremity edema remains controlled. She states that her shortness of breath markedly worsens about an hour or so after taking her Coreg. In addition she is on metformin 1000 mg p.o. twice daily which may be contributing to her fluid retention. In our office today her blood pressure is 160/60, pulse is 128 and regular. Physical exam demonstrates 2+ carotid upstroke bilaterally, no carotid bruits, regular rate and rhythm, 2/6 holosystolic murmur best heard at the lower left sternal border, no edema. EKG dated 11/28/2019 shows normal sinus rhythm, low voltage, normal axis, possible left atrial enlargement possible old septal wall myocardial infarction. EKG dated 03/21/2020 showed normal sinus rhythm at a rate of 83, no acute changes, essentially normal EKG. EKG today, 04/15/2020 shows sinus tachycardia at a rate of 120, poor R progression across precordium, low voltage. Her lipids dated 10/05/2019 show an LDL of 72 and HDL of 60. Her lipids dated 02/22/2020 show an LDL of 89 and HDL of 55. Intake Vital Signs 04/15/20 Height 5 ft 1 in 04/15/20 Weight: 276 lb 04/15/20 BMI 52.1 04/15/20 BP 160/60 H 04/15/20 Blood Pressure Location Lt brachial 04/15/20 Position Sitting 04/15/20 Respiration 28 H 04/15/20 Pulse 128 H 04/15/20 Pulse Source Auscultation 04/15/20 Temp 98 F 04/15/20 Temperature Source Temporal Artery 04/15/20 Pulse Oximetry (%) 94 04/15/20 Oxygen Delivery Method room air Intake Visit Reasons: S/P PCU Chlorination Operator Required: No Is patient in pain?: No Allergies latex Allergy (Verified 04/10/20 10:56) Rash morphine Adverse Reaction (Verified 04/10/20 10:56) Other Medications Atorvastatin Calcium [Lipitor] 40 mg PO BREAKFAST 03/18/17 [History Confirmed 04/15/20] Pioglitazone [Actos] 15 mg PO DAILY 02/13/18 [History Confirmed 04/15/20] Tamoxifen Citrate 20 mg PO DAILY 02/13/18 [History Confirmed 04/15/20] Gabapentin [Neurontin] 300 mg PO BID 12/07/18 [History Confirmed 04/15/20] albuterol sulfate 90 mcg/actuation aerosol inhaler 2 puff INHALATION Q4H PRN #1 device 11/22/19 [Rx Confirmed 04/15/20] glipizide 10 mg tablet 10 mg PO BID 01/21/20 [History Confirmed 04/15/20] biotin 1,000 mcg chewable tablet 2,000 mcg PO DAILY tab 01/22/20 [History Confirmed 04/15/20] ergocalciferol (vitamin D2) 1,250 mcg (50,000 unit) capsule 1,250 mcg PO QWEEK 01/22/20 [History Confirmed 04/15/20] Aspirin [Aspir 81] 81 mg PO DAILY 03/20/20 [History Confirmed 04/15/20] Losartan Potassium [Cozaar] 25 mg PO DAILY 03/20/20 [History Confirmed 04/15/20] metFORMIN (XR) [Glucophage Xr] 1,000 mg PO BIDCM 03/20/20 [History Confirmed 04/15/20] Furosemide 40 mg PO BID #60 tab 03/21/20 [Rx Confirmed 04/15/20] Potassium Chloride [K-Dur] 20 meq PO BID #60 tab 03/21/20 [Rx Confirmed 04/15/20] omeprazole 40 mg capsule,delayed release 40 mg PO DAILY #30 cap 04/01/20 [Rx Confirmed 04/15/20] verapamil 120 mg 24 hr capsule,extended release 120 mg PO DAILY #30 cap 04/15/20 [Rx Confirmed 04/15/20] PFSH Medical History Chest pain (Acute) Shortness of breath (Acute) Edema of both legs (Chronic) Hypertension (Chronic) Elevated sed rate (Chronic) 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) DM (diabetes mellitus), type 2, uncontrolled (Chronic) Obstructive sleep apnea (Chronic) History of septic shock (Chronic) Elevated C-reactive protein (Chronic) Low HDL (under 40) (Chronic) Morbid obesity with BMI of 45.0-49.9, adult (Chronic) Pyelonephritis (Resolved) Abnormal LFTs (Acute) Hepatic steatosis (Chronic) History of breast cancer (Chronic) Bulging lumbar disc (Chronic) Degenerative disc disease (Chronic) Enthesopathy of right hip (Chronic) Iliac crest spur, right hip (Chronic) Recurrent UTI (Chronic) Rheumatoid arthritis (Chronic) Spinal stenosis, lumbar (Chronic) Dehydration (Resolved) Hypomagnesemia (Resolved) Hypophosphatemia (Resolved) Ketonuria (Resolved) Nonsustained ventricular tachycardia (Resolved) Proteinuria (Resolved) Septic shock (Resolved) Thrombocytopenia (Resolved) Surgical History Hx of lumpectomy (Chronic 11/05/15) H/O section (Chronic) History of tubal ligation (Chronic 1998) History of bowel resection (Chronic 2012) Hx of breast biopsy (Resolved) Partial small bowel obstruction (Resolved) Family History Mother Breast cancer Father Diabetes Sister Cancer Skin Social History (Updated 04/15/20 @ 13:[address] Crow Arreguin MD) Smoking Status: Former smoker how long ago did patient quit smokin, 1ppd second hand exposure: Yes alcohol intake: never substance use type: does not use caffeine: Yes what type of physical activity do you participate in: other details: Pt is in Physical Therapy frequency: 3-4 times per week ROS Const Const: Positive for fatigue, weight gain (On Lasix for edema) and other (Was in PCU 12/05/19 for diastolic CHF. She is still very sob, even talking); negative for weakness, body ache, fever(s), headache(s), chills, frequent falls, night sweats, daytime sleepiness, difficulty sleeping, excessive sweating, weight loss, increased appetite, poor appetite or anorexia Eyes Eyes: Negative for blind spots, loss of peripheral vision, transient loss of vision, blurry vision, change in vision, double vision, floaters, tunnel vision or other ENT ENT: Negative for headache(s), dizziness, hearing loss, tinnitus, Nosebleed/epistaxis, balance problems, post nasal drip, lip swelling, tongue swelling, bleeding gums, hoarseness, neck pain, dry mouth or other Cardio Chest Pain: Yes (comes and goes, more with exertion) Frequency: more than once a day (since August) Character: other (Sometimes like brick on chest, now more pressure and burning) Resp Respiratory: Positive for SOB with activity (with minimal exertion and talking), Cough (dry cough), wheezing and other (Tested for COVID-19 by Willow Hernandez today. SOB since August.) GI GI: Negative nausea, vomiting, heartburn, constipation, belching, bloating, cramping, vomiting blood/hematemesis, bright, red blood in stools, black,tarry stools, loose stools, Difficulty Swallowing or other : Negative for hematuria, frequent nighttime urination/ nocturia, erectile dysfunction or abnormal vaginal bleeding Musc Musc: Negative for muscle aches/ myalgia, muscle weakness, joint pain or balance problems Skin Skin: Negative redness, non-healing lesions, rash, unusual bruising, skin ulcer, wounds, jaundice or other Neuro Neuro: Negative for dizziness, lightheadedness, near syncope, syncope, orthostatic symptoms, frequent falls, headache(s), weakness, confusion, memory loss, restless legs, blurry vision, double vision, vertigo, seizures, lack of coordination or other Claude Hematologic/Lymphatic: Negative for easy bleeding, easy bruising, enlarged lymph nodes or other Endo Endo: Positive for fatigue; negative for cold intolerance, heat intolerance, excessive sweating, flushing, increased thirst/drinking, increased hunger, hair loss, hair growth or other Psych Psych: Negative for anxiety, depression, thoughts of harming anyone, thoughts of harming yourself, visual hallucinations, panic attacks or audible hallucinations Allergy Allergy/Immunology: Negative for throat swelling, Negative for tongue swelling, Negative for hives, Negative for rash, Negative for lip swelling Cardiology Exam Const Appearance: cooperative, healthy appearing and no acute distress Nutritional Appearance: well nourished Orientation: alert, oriented x3 and oriented to person Head Head: normal to inspection, normocephalic and atraumatic Nose: external nose normal Face and Sinus: face symmetric Mouth: oral mucosae normal Eyes General: appearance normal, both eyes and all related structures Eyelids: eyelids normal Conjunctivae: conjunctivae normal Pupils: PERRL and normal by confrontation EOM: EOM intact bilaterally Neck Neck: normal visual inspection and full ROM Carotids: normal carotid upstroke Chest Chest inspection: normal inspection of the chest Auscultation: Bilateral: Clear to Auscultation Cardio Palpation: normal PMI Rate: regular rate Rhythm: regular rhythm Heart sounds: S1 normal and S2 normal GI GI: normal to inspection, no hepatosplenomegaly and bowel sounds present Neuro General: alert, awake, oriented x3, CN's II-XI intact bilaterally and moves all extremities Skin Skin: no rashes or lesions noted Extremities Pulses: Normal: Right Femoral Pulse, Left Femoral Pulse, Right Dorsalis Pedis Pulse, Left Dorsalis Pedis Pulse, Right Posterior Tibial Pulse, Left Posterior Tibial Pulse, Right Radial Pulse, Left Radial Pulse Lower Extremity Edema: None: Bilateral Psych Psychological: normal affect Assessment & Plan 1. Diastolic CHF I50.30 Plan 1. Diastolic heart failure: Patient has had a recent admission for what appears to be diastolic heart failure and pulmonary edema with lower extremity edema as well. In addition she has had progressively worsening dyspnea on exertion since initiation of Coreg therapy in the late fall 2018. In addition she is status post x-ray therapy and chemotherapy for right-sided lumpectomy several years ago. Despite her negative stress test and normal LV function found both by echocardiogram and nuclear imaging, she continues to deteriorate from a respiratory standpoint. Patient has had such bad shortness of breath and wheezing that she almost called the squad. It is very distressing to her. I recommended that we discontinue her Coreg as this may be contributing to her reactive airway disease and substitute this for verapamil ER 120 mg p.o. daily. There may be some interaction between verapamil and tamoxifen, and her tamoxifen may need to be adjusted. Hopefully her heart rate will be better controlled with verapamil as well as her blood pressure. She will return in 2 weeks time for a blood pressure check. In addition, given her history I am concerned that she may have undisclosed coronary artery disease and/or pulmonary hypertension and/or pericardial constriction given her history of x-ray therapy several years ago. She apparently underwent twice as much radiation therapy per the patient. In order to better evaluate this I recommended that she undergo a left and right heart catheterization to evaluate her coronary anatomy, pulmonary pressures, LV function, aortic valve stenosis, and possible pericardial constrictive physiology. The risk/benefits of the procedure were thoroughly explained the patient, including specific attention to lack of onsite surgical backup, and informed consent was obtained. In addition she will be loaded with Plavix 3 mg x 1 today, followed by 75 mg p.o. daily. Continue baby aspirin. Orders Orders: 12 Lead EKG performed by BMS Today Left & Right Heart Cath 3 Days Basic Metabolic Profile (BMP) Today Prothrombin Time w/INR Today Chest PA and Lateral Today ,Serum,hCG Quali. Today 2. Shortness of breath R06.02 Plan 2. Shortness of breath: The patient may have side effects of her Coreg, and we will discontinue her Coreg and start verapamil ER 120 mg p.o. daily. She will continue losartan and Lasix. Again she will undergo left and right heart catheterization to evaluate for her shortness of breath. Orders Orders: 12 Lead EKG performed by BMS Today Left & Right Heart Cath 3 Days Chest PA and Lateral Today ,Serum,hCG Quali. Today 3. Hypertension I10 Plan 3. Hypertension: Repeat blood pressure check in 2 weeks time. Orders Orders: Left & Right Heart Cath 3 Days 4. Obstructive sleep apnea G47.33 BIPAP 08/10 Plan 4. Obstructive sleep apnea: Patient was found to have significant obstructive sleep apnea and is compliant with her BiPAP. 5. Breast cancer: The patient may have recurrence of her breast cancer given her tenderness in her right upper chest, and underwent mammogram and evaluation today. Results of that is pending. 6. Return office in 6 months. This note was generated using a voice recognition system and there may be incorrect words, spelling or punctuation that were not noted when reviewing the office note prior to saving. Plan Detail Other Orders Orders: 12 Lead EKG performed by BMS Today R00.0, R07.9, R60.0 Left & Right Heart Cath 3 Days R07.9, R60.0 Chest PA and Lateral Today R07.9 ,Serum,hCG Quali. Today R07.9 Other Medications New: verapamil ER 120 mg PO DAILY 30 caps 11RF Discontinued: carvedilol must administer with a meal/food Discontinued Reason: Order Changed 3.125 mg PO BID bp Follow Up +6M (Arreguin) Coding Level of Care Code Off vis,est,level 3 Diagnoses Diastolic CHF I50.30 Shortness of breath R06.02 Hypertension I10 Obstructive sleep apnea G47.33 Coding Level of Care Code Off vis,est,level 3 Diagnoses Diastolic CHF I50.30 Shortness of breath R06.02 Hypertension I10 Obstructive sleep apnea G47.33 Supplemental Info Supplemental Information Labs LDL Cholesterol 89 mg/dL (0-130) 02/22/20 HDL Cholesterol 55 mg/dL (40-) 02/22/20 Triglycerides 78 mg/dL (-199) 02/22/20 VLDL Cholesterol 16 mg/dL (5-40) 02/22/20 Diagnostics Electrocardiogram 04/15/20 Echocardiogram 03/21/20 Stress Test Nuclear Medicine 03/21/20 Stress Test 03/21/20 Chest X-Ray 03/20/20 Pulmonary Pulmonary Function Test 12/05/19 Pulmonary Exercise Test 11/28/19 04/15/20 1353 <Electronically signed by Crow Arreguin MD> Date _ Crow Arreguin MD Cosigner Signature: Date (if applicable) CC: Dr. Cara Brambila, DO ~ Original cardiology addendum: Patient seen and examined on day procedure. The risk/benefits of the procedure were thoroughly explained the patient including specific attention to lack of onsite surgical backup, the patient agrees to proceed. Left and right heart catheterization to follow. Procedure Criteria COVID Risk Discussion: COVID-19 risk discussion preceded cardiac catheterization, and patient agrees to proceed.
--- NOTE | 2020-04-16 12:33 | CL.D_ITS ---
Patient Name: FLORENTINO GARG Study Date: 04/16/2020 Performing: Crow Arreguin MD Ht: 61.02 inches 155 cm : 1960 Wt: 277.78 lbs 126 kg Age: 60 Gender: female BSA: 2.17 PROCEDURE(S) PERFORMED OD82-IUF/LHC/COR/LV DC11-AO ROOT ANGIO WITH HEART CATH CLINICAL PROFILE AND INDICATIONS Indications: Suspected CAD Heart Failure: None Stress/Imaging Date: 03/21/2020Stress Test with SPECT MPI: Negative Angina Classification Anginal Classification w/in 2 Weeks: Anginal Equivalent Dyspnea CAD Presentations: Other: Dyspnea on exertion Comorbidities/Risk Factors: Hypertension Dyslipidemia Diabetes Mellitus: Diabetes Therapy: Oral Prior CHF CONCLUSIONS Normal LV size, wall motion,and systolic function Normal Left Ventricular systolic function LVEF: by LV gram 65 % Elevated Left Ventricular End Diastolic Pressure Non obstructive coronary arteries The patient has pulmonary hypertension which is moderate. Aortic Valve Stenosis- Mild RECOMMENDATIONS Management as per referring Automatic Developer d/c asa as this may contribute to pulmonary wheezing. D/c plavix D/c losartan as this may contribute to dry hacking cough Start verapamil and titrate up with respect to tamoxifen use Start imdur 30mg po bid and titrate up from there. Pulmonary eval for moderate to severe pulmonary HTN. f/u with Aravind Arreguin and Oniel Continue Bipap Manual sheath removal DESCRIPTION OF PROCEDURE The patient arrived to the procedure lab. The risks and benefits of the procedure as well as a full d escription of our services here and current unavailability of surgical backup were fully explained to the patient and/or their significant other prior to the catheterization. The Timeout was completed, verifying the correct patient and procedure. The patient's procedural site was prepped and draped in the usual fashion. Local anesthetic was given subcutaneously to right groin region with Lidocaine 2%. Using a modified Seldinger technique, arterial access was obtained via the right femoral artery, a 4 Fr sheath was inserted Venous access was obtained via the right femoral vein, a 7Fr sheath was insert ed. A 7Fr thermal dilution catheter was inserted and right heart pressures were recorded, it was then advanced to PA position for cardiac outputs. Thermal dilution cardiac outputs were then recorded. O2 saturations were then obtained. Simultaneous pressures were then recorded. The Thermal dilution catheter was then removed. Left Ventriculography was performed in AHRRY projection using a 4 F r. Pigtail catheter. LV to AO pullback pressures were then recorded. Ascending (root) aorta selective angiography was then performed in single view. Ascending (root) aorta selective angiography was then performed in single view. Left Coronary Artery selective angiography was performed in multiple views using a 4 Fr. JL5 catheter. Right Coronary Artery selective angiography was then performed in multip le views using a 4 Fr. 3DRC catheter. Left Coronary Artery selective angiography was performed in mul tiple views using a 4 Fr. JL4 catheter.The venous sheath was then pulled and manual compression appli ed until hemostasis achieved CORONARY ANGIOGRAPHY DOMINANCE: Left Dominant LEFT HEART ASSESSMENT Left Ventricular Ejection Fraction: by LV Gram 65 % Normal LV wall motion Normal Left Ventricular systolic function LVEDP: 14 mmHg RIGHT HEART ASSESSMENT Thermal CO: 10.45 Thermal CI: 4.82 PW: 16 PA: 55/16 30 RV: 51/0 12 RA: 06/09 10 PVR: 107 SVR: 658 Right Heart pressures - elevated Pulmonary Hypertension Moderate LEFT MAIN: Angiographically normal LEFT ANTERIOR DESCENDING ARTERY: MID LAD: Mild luminal irregularities less than 30% CIRCUMFLEX ARTERY: Angiographically normal RIGHT CORONARY ARTERY: MID RCA: Mild luminal irregularities less than 30% VALVE FINDINGS: Aortic Valve Stenosis - mild AORTIC ROOT: Angiographically normal COMPLICATIONS No Complications PROCEDURE MEDICATIONS Cardizem 10 mg IV 04/16/2020 12:14:34 Nitro 200 mcg IC 04/16/2020 12:13:14 Nitro 300 mcg IC 04/16/2020 12:14:19 SUMMARY OF HEMODYNAMIC DATA Time AIR REST ECG 09:28:06 RA 06/09 (10) SV 11:54:56 RV 51/0, 12 11:55:10 PW / (16) PV 11:55:35 PA 55/16 (30) PA 11:55:46 LV 181/-19, 14 11:59:43 LV 179/-19, 14 11:59:49 LV 186/-24, 16 12:00:05 PW / (18) 12:00:05 LV 185/-27, 14 12:00:11 PW /20 (18) 12:00:11 LV 179/-17, 15 12:00:29 PA 51/14 (31) 12:00:29 LV 183/-18, 16 12:01:06 RV 52/5, 15 12:01:06 LV 181/-22, 15 12:01:12 RV 45/0, 12 12:01:12 LV 177/-17, 20 12:02:35 LVp 177/-17, 20 12:02:40 AOp 146/65 (99) 12:02:45 AO 120/81 (96) SA 12:05:19 FA 143/61 (93) 12:12:55 Type SV CO (l/m) CI (l/m/ HR Time AIR REST Thermal 111.20 10.45 4.82 94 09:28:06 Label % O2 Pres/Loc Time AIR REST PA 72 PA 12:08:33 AO 94 PV 12:08:37 Signed By Crow Arreguin MD On 04/16/2020 12:32:27 PM Crow Arreguin MD
[2020-04-16 14:45] VITALS: BP 125/53; PULSE 96; RESP 16; O2SAT 97
[2020-04-16 15:34] VITALS: PULSE 90
[2020-04-16 15:45] VITALS: BP 105/50; PULSE 89; RESP 14; O2SAT 97
[2020-04-16 16:45] VITALS: BP 110/57; PULSE 90; RESP 14; O2SAT 92
--- NOTE | 2020-04-16 17:59 | NURSING ---
Pt was completed recovered from Heart catheterization without any complication. VS remained stable, Groin site remained free from complication without S/S of hematoma or bleeding, Pt was able to eat dinner and ambulate without difficulty. Discharge instruction given to patient by curb and gutter laborer RN and again by this RN. PIV removed and patient was discharged home, taken out by wheelchair
[2020-04-17 07:11] LABS: VBG BASE EXCESS 6 mmol/L (-1.0-3.5); VBG Bicarbonate 31 mmol/L (22-26); VBG Oxygen Content 33 mmol/L (23-33); VBG PO2 38 mmHg (25-40); VBG SO2 72 % (50-70)
[2020-04-17 07:11] LABS: VBG BASE EXCESS 7 mmol/L (-1.0-3.5); VBG Bicarbonate 31 mmol/L (22-26); VBG Oxygen Content 33 mmol/L (23-33); VBG PO2 39 mmHg (25-40); VBG SO2 73 % (50-70); VBG pCO2 50.1 mmHg (41-51); VBG pH 7.41 (7.32-7.42)
[2020-04-17 07:11] LABS: Base Excess 4 mmol/L (-2 to +2); Bicarbonate 29.4 mmol/L (22-26); PO2 72 mmHG (75-100); SO2 94 % (95-99); Total Carbon Dioxide 31 mmol/L; pCO2 48.7 mmHg (35-45); pH 7.39 (7.35-7.45)
== END 2020-04-16 17:57 | disposition home or self-care (01) ==
LOC: CLSP 08:41 → PCU 14:52
PROVIDERS: PCP Family Medicine; Referring Provider Internal Medicine Cardiovascular Disease; Visit Provider Internal Medicine Cardiovascular Disease
DX: I27.20 Pulmonary hypertension, unspecified (principal); I35.0 Nonrheumatic aortic (valve) stenosis; I11.0 Hypertensive heart disease with heart failure; I50.30 Unspecified diastolic (congestive) heart failure; E11.9 Type 2 diabetes mellitus without complications; E78.5 Hyperlipidemia, unspecified; M06.9 Rheumatoid arthritis, unspecified; M48.061 Spinal stenosis, lumbar region without neurogenic claudication; G47.33 Obstructive sleep apnea (adult) (pediatric); E66.01 Morbid (severe) obesity due to excess calories; Z79.82 Long term (current) use of aspirin; Z68.42 Body mass index [BMI] 45.0-49.9, adult; Z79.84 Long term (current) use of oral hypoglycemic drugs; Z85.3 Personal history of malignant neoplasm of breast; Z92.3 Personal history of irradiation; Z92.21 Personal history of antineoplastic chemotherapy; Z79.899 Other long term (current) drug therapy; Z87.891 Personal history of nicotine dependence; Z82.49 Family history of ischemic heart disease and other diseases of the circulatory system
CPT/HCPCS: 93460; 93567; J7040; C1751; C1769; C1894; Q9967

== ENCOUNTER → 2020-04-24 13:48 | Outpatient (CLI) | payer OTHER, SELFPAY ==
[2020-04-18 09:23] VITALS: BMI 52.5
== END ==
PROVIDERS: PCP Family Medicine; Referring Provider Surgery; Visit Provider Surgery
DX: L53.9 Erythematous condition, unspecified (principal); N64.4 Mastodynia; Z85.3 Personal history of malignant neoplasm of breast

== ENCOUNTER → 2020-05-31 09:46 | Outpatient (CLI) | payer OTHER, SELFPAY ==
[2020-05-19 11:22] VITALS: BMI 50.2
--- NOTE | 2020-05-31 10:57 | PET_ITS ---
PROCEDURE: WHOLE BODY PET/CT SCAN, MID SKULL TO MID THIGH REASON FOR EXAM: Restaging breast cancer COMPARISON EXAMINATION: Chest CTA 03/12/2020. TECHNIQUE: Following the intravenous administration of 13.39 mCi of F-18 the deoxyglucose, multiplanar imaging acquisitions of the neck, chest, abdomen/pelvis to the mid thigh, obtained at 1 hour post radiopharmaceutical administration. Interpretation is with co-registeration of similar anatomic distribution of CT. Findings: Normal and physiologic distribution of radioisotope identified in the expected intensity of the hepatic and splenic parenchyma, urinary tract and gastrointestinal structures. There is gross anatomic distribution of the intracranial contents. INDEX LESION SIZE SUV INTERPRETATION: 1. There are numerous focal areas of abnormal FDG activity including the skull base (image 10 of series 12, 1.0 x 1.6 cm SUV 23.7), the proximal bilateral humeri (SUV 16.0 right; SUV 17.0 left), bilateral scapula (SUV 10.1 left), multiple vertebral (cervical SUV 10.3, thoracic SUV 7.8, lumbar SUV 7.3) bodies, pelvis (SUV 11.1), ribs (left) and proximal bilateral femurs (SUV 14.5 right; SUV 14.6 left). Asymmetric soft tissue mass in the medial anterior chest wall measuring 3.4 x 4.8 cm with abnormal FDG activity (SUV 11.8). The abnormal activity extends into the upper sternum (SUV 8.6). Adenopathy of the superior mediastinum including a station 4 paratracheal lymph node measuring 1.6 x 1.6 cm (SUV 10.9). A right subcarinal lymph node measuring 1.5 x 1.8 cm with abnormal FDG (SUV 7.3). Bilobed mass (SUV 11.1) of the upper right lung measures 1.8 x 4.4 cm with adjacent groundglass opacity and nodularity (larger and more solid since prior chest CTA). Several subpleural nodules are identified in multiple lobes measuring 4-5 mm, low size limitations of PET scan. Amorphous ground glass opacity (1.3 cm) of the left upper lobe on image 71 with slight micronodular solid components. Multifocal localized activity in the right hepatic lobe measuring up to with SUV 15.1. There is a lymph node anterior to the IVC measuring 1.5 x 1.9 cm with SUV 4.4. Supraclavicular lymph node measuring 1.3 cm also demonstrates abnormal FDG activity (SUV 11.4). CT portion of the exam: There is no demonstrated pleural abnormality. Normal heart and pericardium. There are calcifications of the coronary arteries. Normal unenhanced pulmonary arteries. There is atherosclerotic calcification of the aortic arch with tortuosity and elongation of the aortic arch and descending thoracic aorta. Normal liver. Normal gallbladder and extrahepatic biliary system. Normal spleen. Normal pancreas. Normal bilateral adrenal glands. Normal right kidney. Normal left kidney. Normal visualized stomach. Normal small intestine. There are multiple colonic diverticula consistent with diverticulosis. There is non-visualization of the appendix. There is diffuse atherosclerotic calcification of the abdominal aorta, without a demonstrated aneurysm. Normal inferior vena cava. Normal urinary bladder. PET/PET/CT Tumor Base -Thigh Init IMPRESSION: 1. ABNORMAL EXAMINATION. Soft tissue mass of the medial right chest wall extending into the sternum meets criteria for viable neoplasm with multifocal metastasis including lung (dominant right upper lobe), mediastinum, axial/appendicular skeleton (including skull base), hepatic and upper abdominal pericaval lymph node. 2. Chronic changes, as detailed above. Electronically Signed: Kuldip Jerez MD ([facility]) at 16:11 EDT , Service support ,
== END ==
PROVIDERS: PCP Family Medicine; Referring Provider Internal Medicine Medical Oncology; Visit Provider Internal Medicine Medical Oncology
DX: C50.211 Malignant neoplasm of upper-inner quadrant of right female breast (principal); C77.9 Secondary and unspecified malignant neoplasm of lymph node, unspecified
CPT/HCPCS: 78815; A9552

== ENCOUNTER → 2020-06-09 07:34 | Outpatient (CLI) | payer OTHER, SELFPAY ==
[2020-06-03 09:47] VITALS: BMI 49.2
--- NOTE | 2020-06-09 07:35 | CT_ITS ---
STUDY: CT BRAIN WITH AND WITHOUT CONTRAST REASON FOR EXAM: Female, 60 years old. Headache, history of lung mass and abnormal PET study. RADIATION DOSAGE (If Supplied By Facility): CTDIvol = ( 44.99 ) mGy, DLP = ( 1648.46 ) mGycm TECHNIQUE: Transaxial CT imaging of the brain was performed pre and post contrast administration. The examination was performed with intravenous administration of 50ML ISOVUE 370. Individualized dose optimization techniques were used for this CT. COMPARISON: MR brain from 11/06/2018 FINDINGS: Normal soft tissue structures. Normal calvarium. Normal size ventricles and extra-axial spaces for the patient''s age. There are areas of decreased attenuation within the white matter tracts of the supratentorial brain, consistent with microvascular disease changes. There is subtle asymmetry in the left parahippocampal gyrus best seen on axial image 19 suggesting previous infarct. There was subtle abnormal signal here on a previous MRI from 2019. No suspicious enhancement or edema noted. Normal basal ganglia and thalami. Normal brainstem. Normal cerebellum. There is no intracranial hemorrhage. There are no findings of an acute ischemic infarction. Normal visualized paranasal sinuses. CT/Brain/Head W/WO Contrast IMPRESSION: Age consistent changes, no acute findings Subtle asymmetric hypodensity in the left parahippocampal gyrus suggesting previous infarct. This is best seen on axial images 19 Electronically Signed: Filiberto Lynn MD at 10:40 EDT , Service support ,
[2020-06-09 07:55] LABS: Hematocrit 29.5 % (37-47); Hemoglobin 8.8 g/dL (12.0-15.0); Mean Corp Hgb Conc 29.8 g/dL (32-36); Mean Corpuscular Hgb 27.6 pg (27.0-32.0); Mean Corpuscular Volume 92.5 fL (81-99); Mean Platelet Vol. 10.5 fl (6.2-12.0); POSITIVE COUNT YES; POSITIVE MORPHOLOGY YES; Platelet Count 63 K/mm3 (150-450); RBC Distribution Width CV 16.5 % (11.6-14.6); RBC Distribution Width SD 54.7 fl (35.1-43.9); Red Blood Count 3.19 M/mm3 (4.2-5.4)
[2020-06-09 08:05] LABS: International Normalized Ratio 1.2; Partial Thromboplast Time 27.3 Seconds (24.1-36.2); Prothrombin Time (Protime)PT. 14.4 SECONDS (11.7-14.9)
[2020-06-09 08:18] VITALS: BP 161/57; PULSE 99; RESP 20; TEMP 36.9; O2SAT 95; BMI 47.7
[2020-06-09 08:19] LABS: Differential Indicated MANUAL DIFF
[2020-06-09 08:26] LABS: Basophil 2 % (0-1); Eosinophil 1 % (0-5); Lymphocyte 41 % (19-41); Monocyte 11 % (0-10); Neutrophil-Band 4 % (0-5); Neutrophil-Segmented 41 % (47-70); Total Cells Counted 100 (MANUAL DIFF)
[2020-06-09 08:30] LABS: ALB/GLOB Ratio 0.6 RATIO (0.9-2.4); AST(SGOT) 159 U/L (15-37); Alanine Aminotransfer ALT/SGPT 30 U/L (13-56); Albumin, Serum 2.8 g/dL (3.2-5.0); Alkaline Phosphatase 237 U/L (45-117); Anion Gap 10 (5-15); BUN 10 mg/dL (7-18); BUN/Creat Ratio 12.3 RATIO (10-20); Calcium,Total 9.6 mg/dL (8.5-10.1); Chloride 103 mmol/L (98-107); Creatinine, Serum 0.81 mg/dL (0.55-1.02); EST Glomerular Filtration Rate 77 mL/min (>60); Est Glom Filt Rate - Afr Amer 93 mL/min (>60); Globulin 4.7 g/dL (2.2-4.2); Glucose 162 mg/dL (74-106); LDH > 4000 U/L (84-246); Protein, Total 7.5 g/dL (6.4-8.2); Sodium Level 145 mmol/L (136-145)
[2020-06-09 08:31] LABS: Nucleated Red Bld Cells,Manual 7 % (0-5)
[2020-06-09 08:35] LABS: Atypical Lymphocyte SEVERAL %
[2020-06-09 08:36] LABS: Absolute Lymphocyte Count 2.05 X10^3/uL (0.83-4.51); Absolute Neutrophil Count 2.3 X10^3/uL (2.0-7.7); Polychromasia 1+
[2020-06-09 08:37] LABS: Platelet Estimate MKD DEC (ADEQ); Red Cell Morphology N CYTIC NORMAL (NORM C&C)
--- NOTE | 2020-06-09 09:05 | NURSING ---
PT NOW IN CT, FOR BRAIN WITH AND WITHOUT. PT AND INFORMED THAT NO RADIOLOGIST WILL BE AVAILABLE TO DO THE CHEST WALL BX TODAY. PT GIVEN ICE WATER AND GIFT CERTIFICATES FOR SUBWAY AND GIFT SHOP. PT AWARE RESCHEDULED FOR 06/10 AT 0915. PT ASSISTED TO BATHROOM AND INTO DRESSING ROOM. PT TO ELEVATOR VIA WC.
[2020-06-10] VITALS (9 sets, daily range): BP systolic 140–175; BP diastolic 57–80; PULSE 94–102; RESP 16–22; TEMP 36.8; O2SAT 93–99; BMI 47.7
--- NOTE | 2020-06-10 | IMM_PTH ---
PATIENT: FLORENTINO GARG LOC: CT U#:[id number] AGE/SX: 65/F ROOM: RE06/09/[address]: TIEN Mora : 1960 BED: DIS: SPEC #: [id number] RECD: 06/11/20 12:19 STATUS: SMOOTH REQ #: [id number] SURAJ: 06/10/20 00:[address]: Willow Hernandez NP DEPT: IMMUNOHISTOCHEMISTRY RECD BY: Dayana Diaz ENTERED: 06/11/20 12:21 SP TYPE: IMMUNO OTHR DR: Dr. Cara Brambila DO Tissues: Chest wall, NOS Procedures: RCC (add) NAPSIN A (add) CK20 (add) CK5-6 (add) CK7 (add) CK8 (add) E-CAD (add) HEP PAR (add) HER2 AMRIT (add) MAMM (add) TN (add) TTF1 (add) Pankeratin (add) GATA3 (add) P40 (add) ER (initial) PHYSICIAN & [address] [address] SPECIMEN INFORMATION: Tissue Source: Right anterior chest wall mass Clinical Info: Right anterior chest wall mass Specimen Number: [id number] CPT code: 68057, 92139 x15 METHODOLOGY: Deparaffinized sections of prefer/formalin-fixed tissue or PAP/DQ stained slides are incubated with monoclonal/polyclonal antibodies/oligonucleotide probes. Localization is made via biotin free immunoperoxidase method. Appropriate controls are performed and reacted as expected. Results on target cell population are indicated in the following table: RESULTS: ANTIBODY / CLONE RESULT ER (6F11) positive TN (1E2) positive Her-2neu (CB11) 2+ (equivocal) E-Cad (ECH-6) positive Mammaglobin (31A5) negative GATA3 (L50-823) positive AE1-3 (AE1/AE3/PCK26) positive CK7 (OV-TL12/30) positive CK8 (20wmgvU10) positive CK20 (KS20.8) negative TTF-1 (8G7G3/1) negative Napsin A (Rabbit Polyclonal) negative HepPar (OCh1E5) negative RCC (PN-15) negative CK5-6 (D5 & 1684) positive P40 (BC28) negative These tests were developed and their performance characteristics determined by [facility]. They may not have been cleared or approved by the U.S. Food and Drug Administration. The FDA has determined that such clearance or approval is not necessary. The above immunohistochemical/dualISH markers are ordered and reviewed by the Pathologist. 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 See comment. Comment: Results of Her-2 by Dual-Mary Ellen will be reported as an addendum. SJ:rg 06/12/20 ADDENDUM ADDENDUM ADDENDUM ADDENDUM ADDENDUM ADDENDUM ADDENDUM ADDENDUM ADDENDUM ADDENDUM ADDENDUM ADDENDUM ADDENDUM 07/01/2020 09:25 ADDENDUM 07/01/2020 09:25 ADDENDUM 07/01/2020 09:25 ADDENDUM 07/01/2020 09:25 ADDENDUM 07/01/2020 09:25 AUTOMATED BREAST CANCER HER2/AMRIT FISH ANALYSIS FROM [employer] INTERPRETATION AND RESULTS: Negative / Not Amplified HER2 : CEP-17 Ratio: 1.8:1 Average HER2 Signal: 4.4 Average CEP-17 Signal: 2.5 Number of Tumor Cells Scanned: 100 Please see complete report in e-chart or EMR
--- NOTE | 2020-06-10 09:15 | CT_ITS ---
PROCEDURE: CT-GUIDED CORE BIOPSY CHEST WALL MASS IN THE UPPER POLE OF THE RIGHT HEMITHORAX Individualized dose optimization techniques were used for this CT. INDICATION: Female, 60 years old. Breast cancer. Metastatic disease. CT guidance CONSENT: The risks, benefits and alternatives to the procedure were explained to the patient, and the patient agreed to the procedure and signed the consent. SEDATION: Intermittent the intravenous and demonstration of Versed and fentanyl by nursing staff under continuous cardiopulmonary monitoring. Sedation less than approximately 30 minutes STERILE BARRIER TECHNIQUE: The following sterile barrier precautions were used during the procedure: hand hygiene; use of 2% chlorhexidine aseptic; use of a cap, mask, sterile gown, sterile gloves, sterile full body drape, and a large sterile sheet. PROCEDURE/TECHNIQUE: The risks, benefits, and alternatives to the procedure were explained to patient, and the patient agreed to the procedure and signed a consent form for the procedure. A timeout was performed to confirm the patient''s identity, the type of procedure, to be performed and the site of entry. Patient was positioned supine on the CT scan table. Under CT guidance using sterile technique and after infiltration of the skin and subcutaneous soft tissues with 40 mL of lidocaine 1% an 18-gauge core biopsy was introduced in the chest wall mass previously described.Multiple core samples were obtained and were placed with in formalin solution and sent to the lab for evaluation. Touch prep slides were examined by the pathologist at the procedure. FINDINGS: Successful CT-guided core biopsy of lung mass. CT/Biopsy/Inj or Needle Placement IMPRESSION: Successful CT-guided core biopsy of a chest wall mass. Electronically Signed: Rosemarie Caraballo, at 16:38 EDT Tel , Service support ,
[2020-06-10] MEDS: Midazolam 2 MG/2 ML Syringe IV ×2 (09:34→10:08)
[2020-06-10] MEDS: fentaNYL 100 MCG/2 ML Ampul IV ×2 (09:34→10:13)
--- NOTE | 2020-06-10 09:55 | ASPIGT_PTH ---
PATIENT: FLORENTINO GARG LOC: CT U#:[id number] AGE/SX: 65/F ROOM: RE06/09/[address]: TIEN Mora : 1960 BED: DIS: SPEC #: [id number] RECD: 06/10/20 10:16 STATUS: SMOOTH SALOMÓN #: [id number] SURAJ: 06/10/20 09:[address]: Willow Hernandez NP DEPT: SURGICAL PATHOLOGY RECD BY: Patrick Carrillo ENTERED: 06/10/20 10:17 SP TYPE: ASP RAD OTHR DR: Dr. Cara Brambila DO Tissues: Chest wall, NOS Procedures: FNA Specimen Adequacy Special Stain Group II Surgery Specimen Level IV Imprint (control) HEADER OPERATION: CT-guided right chest mass PRE-OP DIAGNOSIS: Right anterior chest wall mass TISSUE SUBMITTED: Right anterior chest wall mass 18-gauge core MICROSCOPIC DIAGNOSIS Right anterior chest wall mass, CT-guided core biopsy: Metastatic carcinoma, consistent with breast primary (ductal carcinoma). See comment. MIMA:pat 06/11/20 COMMENT The specimen is evaluated at the time of biopsy by Dr. Valdez. Immediate Evaluation = Malignant cells present. Immunohistochemistry ([id number]) supports the above diagnosis. As per EMR, the patient has history of right breast cancer diagnosed in 2014. MICROSCOPIC DESCRIPTION Slides are reviewed. GROSS DESCRIPTION Received in fixative is one container labeled with the patient's name and designated right anterior chest wall mass. The specimen consists of multiple elongated fragments of [place] soft tissue that in aggregate measure 2 x 0.2 x 0.1 cm. The specimen is totally submitted in one cassette. Three touch imprints are prepared at the time of core biopsy. / MIMA:pat 06/10/20 TC:0 CPT: 50869, 41334
[2020-06-10 12:35] LABS: Pathologist Review Reviewed
== END ==
PROVIDERS: Internal Medicine Medical Oncology; PCP Family Medicine; Referring Provider Nurse Practitioner Family; Visit Provider Nurse Practitioner Family
DX: R22.2 Localized swelling, mass and lump, trunk (principal)
CPT/HCPCS: 32405; 36415; 70470; 77012; 80053; 83615; 85025; 85610; 85730; 88172; 88305; 88313; 88341; 88342; 99155; 99156; 99157; J7040; Q9967; A4216